=== PATIENT | female | born 1970 | race African-American/Black ===

== ENCOUNTER → 2018-06-17 15:55 | Outpatient (CLI) | payer BC, MEDICAID, SELFPAY ==
[2018-06-17 17:21] LABS: Absolute Lymphocyte Count 2.35 X10^3/ul (0.83-4.51); Absolute Neutrophil Count 5.5 X10^3/uL (2.0-7.7); Basophil# 0.05 X10^3/uL; Basophil% 0.6 % (0-1); Eosinophil# 0.35 X10^3/uL; Hematocrit 35.7 % (37-47); Hemoglobin 11.4 g/dl (12.0-15.0); Lymphocyte # 2.35 X10^3/ul (4.0); Lymphocyte % 26.6 % (19-41); Mean Corp Hgb Conc 31.9 g/gl (32-36); Mean Corpuscular Hgb 26.1 pg (27.0-32.0); Mean Corpuscular Volume 81.7 fL (81-99); Mean Platelet Vol. 11.2 fl (6.2-12.0); Monocyte# 0.57 X10^3/uL; Monocyte% 6.5 % (0-10); Neutrophil # 5.48 X10^3/uL (2.7-7.7); Neutrophil % 62.1 % (47-70); Platelet Count 292 K/mm3 (150-450); RBC Distribution Width CV 15.1 % (11.6-14.6); RBC Distribution Width SD 44.7 fl (35.1-43.9); Red Blood Count 4.37 M/mm3 (4.2-5.4); White Blood Count 8.8 K/mm3 (4.4-11.0)
[2018-06-17 17:25] LABS: POSITIVE COUNT NO; POSITIVE DIFFERENTIAL NO; POSITIVE MORPHOLOGY NO
[2018-06-17 17:51] LABS: Thyroid Stim Hormone (TSH) 1.94 uIU/mL (0.358-3.74)
== END ==
PROVIDERS: Family Provider Family Medicine; PCP Family Medicine; Referring Provider Nurse Practitioner Women's Health; Visit Provider Nurse Practitioner Women's Health
DX: N92.1 Excessive and frequent menstruation with irregular cycle (principal)
CPT/HCPCS: 36415; 84443; 85025

== ENCOUNTER → 2018-06-17 18:42 | Outpatient (CLI) | payer BC, MEDICAID, SELFPAY ==
[2018-06-23 14:30] LABS: HPV APTIMA, High Risk Negative (Negative)
== END ==
PROVIDERS: Family Provider Family Medicine; PCP Family Medicine; Referring Provider Nurse Practitioner Women's Health; Visit Provider Nurse Practitioner Women's Health
DX: Z12.4 Encounter for screening for malignant neoplasm of cervix (principal)
CPT/HCPCS: 88175; G0145

== ENCOUNTER → 2018-06-26 12:55 | Outpatient (CLI) | payer BC, MEDICAID, SELFPAY ==
--- NOTE | 2018-06-26 12:58 | US_ITS ---
STUDY: ULTRASOUND OF THE FEMALE PELVIS - COMPLETE REASON FOR EXAM: Female, 48 years old. Abnormal menses. LMP: June 24, 2018. TECHNIQUE: Transabdominal and Transvaginal TECHNICAL QUALITY: Adequate. COMPARISON: None. FINDINGS: The uterus is anteverted and is in a midline position. The uterus is enlarged and measures 15.4 cm x 9.2 cm x 8.6 cm. There is a Nabothian cyst of the cervix. The endometrium measures 5.7 mm in thickness, and is hyperechoic. There is no demonstrated endometrial mass. 3 fibroids are seen. The largest measures 5 cm x 3.3 cm x 4.4 cm. The uterine volume is 635 mL. I.U.D. - The patient does not have an I.U.D. The right ovary is non-visualized. The left ovary is visualized. The left ovary measures 4.5 cm x 4.5 cm x 1.8 cm. There is a 3.6 cm x 3.9 cm x 1.7 cm cyst. There is no visualized left adnexal mass or complex lesion. There is normal arterial and normal venous vascularity. There is no fluid in the cul-de-sac. The pre void volume of the bladder was 298 ml. Polycystic ovary disease: No. US/Transvaginal Non- IMPRESSION: Enlarged fibroid uterus. Left ovarian cyst. Electronically Signed: Oli Edge MD at 15:39 EDT Tel [phone], Service support ,
--- NOTE | 2018-06-26 12:58 | US_ITS ---
STUDY: ULTRASOUND OF THE FEMALE PELVIS - COMPLETE REASON FOR EXAM: Female, 48 years old. Abnormal menses. LMP: June 24, 2018. TECHNIQUE: Transabdominal and Transvaginal TECHNICAL QUALITY: Adequate. COMPARISON: None. FINDINGS: The uterus is anteverted and is in a midline position. The uterus is enlarged and measures 15.4 cm x 9.2 cm x 8.6 cm. There is a Nabothian cyst of the cervix. The endometrium measures 5.7 mm in thickness, and is hyperechoic. There is no demonstrated endometrial mass. 3 fibroids are seen. The largest measures 5 cm x 3.3 cm x 4.4 cm. The uterine volume is 635 mL. I.U.D. - The patient does not have an I.U.D. The right ovary is non-visualized. The left ovary is visualized. The left ovary measures 4.5 cm x 4.5 cm x 1.8 cm. There is a 3.6 cm x 3.9 cm x 1.7 cm cyst. There is no visualized left adnexal mass or complex lesion. There is normal arterial and normal venous vascularity. There is no fluid in the cul-de-sac. The pre void volume of the bladder was 298 ml. Polycystic ovary disease: No. US/Pelvic (Non ) IMPRESSION: Enlarged fibroid uterus. Left ovarian cyst. Electronically Signed: Oli Edge MD at 15:39 EDT Tel [phone], Service support ,
== END ==
PROVIDERS: Family Provider Family Medicine; PCP Family Medicine; Referring Provider Nurse Practitioner Women's Health; Visit Provider Nurse Practitioner Women's Health
DX: N92.1 Excessive and frequent menstruation with irregular cycle (principal)
CPT/HCPCS: 76830; 76856; 93976

== ENCOUNTER → 2018-07-29 15:15 | Outpatient (CLI) | payer BC, SELFPAY ==
--- NOTE | 2018-07-29 15:18 | BI_ITS ---
MAMMOGRAPHY - BILATERAL SCREENING REASON FOR EXAM: Female, 48 years old. Routine annual screening examination. PERTINENT HISTORY: Non-contributory. TECHNIQUE: Digital bilateral breast noelle (3D mammographic acquisition) in the CC and MLO projections. 2-D mediolateral oblique (MLO) and craniocaudad (CC) views of both breasts were obtained. CAD: Full Field Digital Mammography with Computer Added Detection was performed. COMPARISON: Comparison is made with prior mammogram dated May 29, 2015 and May 18, 2014. FINDINGS: Breast Composition: The breasts are heterogeneously dense, which may obscure small masses. There are no dominant masses or suspicious calcifications. Stable 9.4 mm x 1.2 cm nodular density with a central fatty hilum in the superior lateral aspect of the left breast. This most likely represents a small lymph node. Stable benign appearing bilateral axillary lymph nodes. No other significant abnormalities are identified. There has been no significant change since the prior study. BI/SCREENING MAMM (CAD), BILAT IMPRESSION: Stable bilateral screening mammogram. Yearly follow-up mammogram recommended. (A) ASSESSMENT CATEGORY: BIRADS Category 2: Benign. A letter regarding these results will be sent to the patient by the facility within 30 days. Approximately 10% of breast cancers are not detected by mammography. A normal mammogram should not delay biopsy of a clinically suspicious abnormality. [id number] Electronically Signed: Oli Edge MD at 8:41 EST Tel [phone], Service support ,
--- OUTSIDE RECORDS SUMMARY | 2018-09-24 01:35 | XMS RPT_ITS ---
:1970 Author Organization OHIP Support Name Relationship Address Phone ADRIEN CARRERO Unavailable [address] + [place] [address] DARYN YUEN Unavailable [address] + [place] [address] [facility] Unavailable [address] + [place] [address] CARRERO ADRIEN Unavailable [address] + [place] [address] DARYN YUEN Unavailable [address] + [place] [address] [facility] Unavailable [address] + [place] [address] CARRERO ADRIEN Unavailable [address] + [place] [address] DARYN YUEN Unavailable [address] + [place] [address] [facility] Unavailable [address] + [place] [address] CARRERO ADRIEN Unavailable [address] + [place] [address] DARYN YUEN Unavailable [address] + [place] [address] [facility] Unavailable [address] + [place] [address] CARRERO ADRIEN Unavailable [address] + [place] [address] DARYN YUEN Unavailable [address] + [place] [address] [facility] Unavailable [address] + [place] [address] CARRERO ADRIEN Unavailable [address] + [place] [address] DARYN YUEN Unavailable [address] + [place] [address] [facility] Unavailable [address] [facility] + [place] [address] Care Team Providers Name Role Phone Dungannon, Ayah Attending Unavailable Malys, Maxine Referring Unavailable Aurora, Ayah Attending Unavailable Aurora, Ayah Referring Unavailable Malys, Maxine Primary Care Unavailable Aurora, Ayah Attending Unavailable Malys, Maxine Primary Care Unavailable Aurora, Ayah Referring Unavailable Dungannon, Ayah Attending Unavailable Aurora, Ayah Referring Unavailable Malys, Maxine Primary Care Unavailable Aurora, Ayah Attending Unavailable Malys, Maxine Referring Unavailable Malys, Maxine Attending Unavailable Malys, Maxine Primary Care Unavailable PROBLEMS PROBLEMS DATE TYPE CONDITION / CODE ATTENDING STATUS SOURCE 08/06/2018 Unknown N92.0 - Excessive Aurora, Ayah Active [place] and frequent Community menstruation with Hospital regular cycle / Repository N92.0(ICD-10) 08/06/2018 Unknown D25.9 - Leiomyoma Aurora, Ayah Active [place] of uterus, Community unspecified / Hospital D25.9(ICD-10) Repository 08/06/2018 Unknown N83.202 - Aurora, Ayah Active [place] Unspecified Community ovarian cyst, left Hospital side / Repository N83.202(ICD-10) 07/15/2018 Unknown N92.1 - Excessive Aurora, Ayah Active [place] and frequent Community menstruation with Hospital irregular cycle / Repository N92.1(ICD-10) 07/15/2018 Unknown N92.6 - Irregular Dungannon, Ayah Active [place] menstruation, Community unspecified / Hospital N92.6(ICD-10) Repository 07/15/2018 Unknown N85.2 - Dungannon, Ayah Active [place] Hypertrophy of Community uterus / Hospital N85.2(ICD-10) Repository 07/15/2018 Unknown Z12.4 - Encounter Dungannon, Ayah Active [place] for screening for Community malignant neoplasm [facility] cervix / Repository Z12.4(ICD-10) PROCEDURES PROCEDURES No Procedure Records FoundRESULTS RESULTS SCREENING MAMM (CAD), Observed: 07/29/2018 Status: F Source: [place] BILAT 3:18 PM [facility] REPOSITORY [facility] Imaging Services [address] [place] [address] SCREENING MAMM (CAD), BILAT MR#: [id number] Acct: [id number] Name: ALTA CARRERO Rep #: [id number] : 1970 F 48 From: Oli Edge MD PCP: Maxine Ortiz DO Status: REG CLI Study: SCREENING MAMM (CAD), BILAT Date of Exam: 07/29/18 Exam# [id number] Ordering Dr: Maxine Ortiz DO MAMMOGRAPHY - BILATERAL SCREENING REASON FOR EXAM: Female, 48 years old. Routine annual screening examination. PERTINENT HISTORY: Non-contributory. TECHNIQUE: Digital bilateral breast noelle (3D mammographic acquisition) in the CC and MLO projections. 2-D mediolateral oblique (MLO) and craniocaudad (CC) views of both breasts were obtained. CAD: Full Field Digital Mammography with Computer Added Detection was performed. COMPARISON: Comparison is made with prior mammogram dated May 29, 2015 and May 18, 2014. FINDINGS: Breast Composition: The breasts are heterogeneously dense, which may obscure small masses. There are no dominant masses or suspicious calcifications. Stable 9.4 mm x 1.2 cm nodular density with a central fatty hilum in the superior lateral aspect of the left breast. This most likely represents a small lymph node. Stable benign appearing bilateral axillary lymph nodes. No other significant abnormalities are identified. There has been no significant change since the prior study. BI/SCREENING MAMM (CAD), BILAT IMPRESSION: Stable bilateral screening mammogram. Yearly follow-up mammogram recommended. (A) ASSESSMENT CATEGORY: BIRADS Category 2: Benign. A letter regarding these results will be sent to the patient by the facility within 30 days. Approximately 10% of breast cancers are not detected by mammography. A normal mammogram should not delay biopsy of a clinically suspicious abnormality. [id number] Electronically Signed: Oli Edge MD at 8:41 EST Tel [phone], Service support , CC: Maxine Ortiz DO [place]: Signed GAS LINE INSTALLER OFFICE VISIT Observed: 07/07/2018 Status: F Source: [place] REPORT 4:48 PM [facility] [address] [place] [address] OFFICE VISIT Date of Service: 07/07/18 MR#: [id number] Acct: [id number] Name: ALTA CARRERO Rep #: [id number] : 1970 Provider: PATRICIA Simon Age/Sex: 48/F Location: [facility] Status: Signed Intake Vital Signs07/07/18 Height 5 ft 6.5 in 07/07/18 Weight: 223 lb 07/07/18 Body Mass Index (BMI) 35.4 07/07/18 Blood Pressure 140/88 H Intake Visit Reasons: Discuss Surgery Options Chief Complaint: SURGICAL CONSULT Foreign Clerk Required: No Is patient in pain?: No Allergies egg Allergy (Verified 07/07/18 15:54) Anaphylaxis sulfamethoxazole [From Bactrim] Adverse Reaction (Verified 07/07/18 15:54) Hives trimethoprim [From Bactrim] Adverse Reaction (Verified 07/07/18 15:54) Hives Medications Albuterol Sulfate [Ventolin Hfa] 18 gm IH PRN PRN 02/04/17 [History Confirmed 07/07/18] Atenolol 50 mg PO DAILY 02/04/17 [History Confirmed 07/07/18] Diazepam [Valium] 5 mg PO Q8 PRN #10 tab 02/04/17 [Rx Confirmed 07/07/18] Mometasone/Formoterol [Dulera 100 Mcg/5 Mcg Inhaler] 8.8 gm IH DAILY 02/04/17 [History Confirmed 07/07/18] Ondansetron [Zofran Odt] 4 mg PO Q8H PRN PRN #10 tab 02/04/17 [Rx Confirmed 07/07/18] Is last menstrual period known: No Post menopausal: No Patient : No : No PFSH Medical History Asthma (Acute) Hypertension (Chronic) Social History number of children: 3 current occupational status: employed current occupation: [employer] Smoking Status: Never smoker alcohol intake: never substance use type: does not use seatbelt use: always do you feel safe at home: Yes additional social history: Adrien Swain HPI Discuss Surgery Options: Details: ALTA CARRERO is a 48 year old who presents for discussion of options to control heavy menses and uterine fibroids. She has been on progesterone OCP X 2 years and thought that long and heavy menses was due to that. She came to me for 2nd opinion and US results indicates enlarged 15cm uterus with multiple fibroids. She did stop the OCP and has not yet had a menses. She can not use combination OCP due to hypertension. Her is with her today. Pregancy History 4 Elective abortions Hx Para 3 Spontaneous abortions 1 Past Pregnancies Del. DateName GA/Weeks Outcome Route Bth WeighInfant GeLabor LgtAnesthesiDel LocatProvider FOB t n h a n ROS Const Constitutional: Reports system reviewed and no additional complaints, except as docu GI GI: Denies abdominal pain or change in bowel habits Assessment AND Plan Problems 1. Menorrhagia with regular cycle N92.0 2. Uterine leiomyoma, unspecified location D25.9 3. Cyst of left ovary N83.202 Plan Patient declines IUD but would consider hysterectomy. Will arrange consult with Dr. Lambert and surgery after Sep 01. Repeat US to confirm stable ovarian cyst in 8 weeks if no surgery 15 min FTF counseling with patient Coding Level of Care Code Off vis,est,level 3 Diagnoses Menorrhagia with regular cycle N92.0 Uterine leiomyoma, unspecified location D25.9 Uterine leiomyoma location: unspecified location Cyst of left ovary N83.202 Laterality: left 07/07/18 1648 <Electronically signed by Ayah MILLER> Date Ayah SANDRAC Cosigner Signature: Date (if applicable) CC: PELVIC (NON ) Observed: 06/26/2018 Status: F Source: [place] 12:58 PM [facility] REPOSITORY [facility] Imaging Services [address] [place] [address] Pelvic (Non ) MR#: [id number] Acct: [id number] Name: ALTA CARRERO Rep #: [id number] : 1970 F 48 From: Oli Edge MD PCP: Maxine Ortiz DO Status: REG CLI Study: Pelvic (Non ) Date of Exam: 06/26/18 Exam# [id number] Ordering Dr: Ayah Simon STUDY: ULTRASOUND OF THE FEMALE PELVIS - COMPLETE REASON FOR EXAM: Female, 48 years old. Abnormal menses. LMP: June 24, 2018. TECHNIQUE: Transabdominal and Transvaginal TECHNICAL QUALITY: Adequate. COMPARISON: None. FINDINGS: The uterus is anteverted and is in a midline position. The uterus is enlarged and measures 15.4 cm x 9.2 cm x 8.6 cm. There is a Nabothian cyst of the cervix. The endometrium measures 5.7 mm in thickness, and is hyperechoic. There is no demonstrated endometrial mass. 3 fibroids are seen. The largest measures 5 cm x 3.3 cm x 4.4 cm. The uterine volume is 635 mL. I.U.D. - The patient does not have an I.U.D. The right ovary is non-visualized. The left ovary is visualized. The left ovary measures 4.5 cm x 4.5 cm x 1.8 cm. There is a 3.6 cm x 3.9 cm x 1.7 cm cyst. There is no visualized left adnexal mass or complex lesion. There is normal arterial and normal venous vascularity. There is no fluid in the cul-de-sac. The pre void volume of the bladder was 298 ml. Polycystic ovary disease: No. US/Pelvic (Non ) IMPRESSION: Enlarged fibroid uterus. Left ovarian cyst. Electronically Signed: Oli Edge MD at 15:39 EDT Tel [phone], Service support , CC: PATRICIA Simon; Maxine Ortiz DO [place]: Signed TRANSVAGINAL Observed: 06/26/2018 Status: F Source: [place] NON- 12:58 PM [facility] REPOSITORY [facility] Imaging Services [address] [place] [address] [place] [address] Transvaginal Non- MR#: [id number] Acct: [id number] Name: ALTA CARRERO Rep #: [id number] : 1970 F 48 From: Oli Edge MD PCP: Maxine Ortiz DO Status: REG CLI Study: Transvaginal Non- Date of Exam: 06/26/18 Exam# [id number] Ordering Dr: Ayah Simon CLINICAL REVIEWER-C STUDY: ULTRASOUND OF THE FEMALE PELVIS - COMPLETE REASON FOR EXAM: Female, 48 years old. Abnormal menses. LMP: June 24, 2018. TECHNIQUE: Transabdominal and Transvaginal TECHNICAL QUALITY: Adequate. COMPARISON: None. FINDINGS: The uterus is anteverted and is in a midline position. The uterus is enlarged and measures 15.4 cm x 9.2 cm x 8.6 cm. There is a Nabothian cyst of the cervix. The endometrium measures 5.7 mm in thickness, and is hyperechoic. There is no demonstrated endometrial mass. 3 fibroids are seen. The largest measures 5 cm x 3.3 cm x 4.4 cm. The uterine volume is 635 mL. I.U.D. - The patient does not have an I.U.D. The right ovary is non-visualized. The left ovary is visualized. The left ovary measures 4.5 cm x 4.5 cm x 1.8 cm. There is a 3.6 cm x 3.9 cm x 1.7 cm cyst. There is no visualized left adnexal mass or complex lesion. There is normal arterial and normal venous vascularity. There is no fluid in the cul-de-sac. The pre void volume of the bladder was 298 ml. Polycystic ovary disease: No. US/Transvaginal Non- IMPRESSION: Enlarged fibroid uterus. Left ovarian cyst. Electronically Signed: Oli Edge MD at 15:39 EDT Tel [phone], Service support , CC: PATRICIA Simon; Maxine Ortiz DO [place]: Signed GAS LINE INSTALLER OFFICE VISIT Observed: 06/17/2018 Status: F Source: [place] REPORT 4:35 PM [facility] [address] [place] [address] OFFICE VISIT Date of Service: 06/17/18 MR#: [id number] Acct: [id number] Name: ALTA CARRERO Rep #: [id number] : 1970 Provider: PATRICIA Simon Age/Sex: 48/F Location: [facility] Status: Signed Intake Vital Signs06/17/18 Height 5 ft 6 in 06/17/18 Weight: 223 lb 4 oz 06/17/18 Body Mass Index (BMI) 36.0 06/17/18 Blood Pressure 115/72 Intake Visit Reasons: Heavy bleeding Foreign Clerk Required: No Is patient in pain?: No Allergies egg Allergy (Verified 06/17/18 15:25) Anaphylaxis sulfamethoxazole [From Bactrim] Adverse Reaction (Verified 06/17/18 15:25) Hives trimethoprim [From Bactrim] Adverse Reaction (Verified 06/17/18 15:25) Hives Medications Albuterol Sulfate [Ventolin Hfa] 18 gm IH PRN PRN 02/04/17 [History Confirmed 06/17/18] Atenolol 50 mg PO DAILY 02/04/17 [History Confirmed 06/17/18] Diazepam [Valium] 5 mg PO Q8 PRN #10 tab 02/04/17 [Rx Confirmed 06/17/18] Mometasone/Formoterol [Dulera 100 Mcg/5 Mcg Inhaler] 8.8 gm IH DAILY 02/04/17 [History Confirmed 06/17/18] Ondansetron [Zofran Odt] 4 mg PO Q8H PRN PRN #10 tab 02/04/17 [Rx Confirmed 06/17/18] Is last menstrual period known: Yes Last Menstral Period: 06/08/18 Post menopausal: No Patient : No : No PFSH Medical History Asthma (Acute) Hypertension (Chronic) Social History number of children: 3 current occupational status: employed current occupation: [employer] Smoking Status: Never smoker alcohol intake: never substance use type: does not use seatbelt use: always do you feel safe at home: Yes additional social history: Adrien SANDS Heavy bleeding: Details: ALTA CARRERO is a 48 year old who presents for new patient complaint of irregular menses. Was see by WAREHOUSE DELIVERY DRIVER another facility about 1 year ago and IUD was placed. When she went back for follow up the IUD could not be found. [facility] office US done by provider but no formal US. She was then placed on progesterone only OCP to control menses (due to HTN) and has continued to have irregular bleeding and spotting, sometimes heavy. States feels very tired. She is and had STD evaluation done prior to marriage but [facility] is due for pap and mammogram. Female Reproductive History Last Menstral Period: 06/08/18 Pregancy History 4 Elective abortions Hx Para 3 Spontaneous abortions 1 Past Pregnancies Del. DateName GA/Weeks Outcome Route Bth WeighInfant GeLabor LgtAnesthesiDel LocatProvider FOB t n h a n ROS Const Constitutional: Reports system reviewed and no additional complaints, except as docu GI GI: Denies abdominal pain or change in bowel habits Exam General: bladder normal to palpation External Female Exam: normal external appearance, normal appearance of the urethra Urethra: normal appearance of the urethra Speculum Exam - Vagina: normal appearance of the vagina, normal vaginal discharge, nontender, no lesions Speculum Exam - Cervix: normal appearance of the cervix, other (smooth, nonfriable) Bimanual Exam- Vagina AND Uterus: bladder normal to palpation, normal bimanual exam, uterine shape normal, uterine mobility normal, uterus non-tender, uterus enlarged (8-10 weeks) Bimanual Exam- Adnexa, other: normal adnexae, no adnexal masses, adnexae non-tender Assessment AND Plan Problems 1. Irregular menstrual cycle N92.6 2. Enlarged uterus N85.2 3. Pap smear for cervical cancer screening Z12.4 Plan Stop OCP Ultrasound Thin prep pap with HPV Possible EMB dependent on US and continued bleeding pattern without OCP. Follow up dependent on above Mammogram ordered per PCP Orders Orders: Coding Level of Care Code Off vis,new,level 3 Diagnoses Irregular menstrual cycle N92.6 Enlarged uterus N85.2 Pap smear for cervical cancer screening Z12.4 06/17/18 1635 <Electronically signed by Ayah MILLER> Date Ayah MILLER Cosigner Signature: Date (if applicable) CC: CBC W/DIFF, AUTOMATED Collected: 06/17/2018 Status: F Source: [place] 4:04 PM [facility] REPOSITORY TYPE CODE TESTS RESULT OUT OF RANGE REFERENCE UNITS LAB L100.1000 4.4-11.0 K/mm3 Normal WBC 8.8 LAB L100.1200 4.2-5.4 M/mm3 Normal RBC 4.37 LAB L100.1300 12.0-15.0 g/dl Low HGB 11.4 LAB L100.1400 37-47 % Low HCT 35.7 LAB L100.1500 81-99 fL Normal MCV 81.7 LAB L100.1600 27.0-32.0 pg Low MCH 26.1 LAB L100.1700 32-36 g/gl Low MCHC 31.9 LAB L100.1810 11.6-14.6 % High RDW CV 15.1 LAB L100.1820 35.1-43.9 fl High RDW SD 44.7 LAB L100.1900 150-450 K/mm3 Normal PLT 292 LAB L100.2000 6.2-12.0 fl Normal MPV 11.2 LAB L100.2100 47-70 % Normal NEUT% 62.1 LAB L100.2200 19-41 % Normal LY% 26.6 LAB L100.2300 0-10 % Normal MONO% 6.5 LAB L100.2400 0-5 % Normal EO% 4.0 LAB L100.2500 0-1 % Normal BASO% 0.6 LAB L100.2550 0.0-0.9 % Normal IM GRAN % 0.200 Result Comment: IG% - Immature Granulocytes (promyelocytes, myelocytes and metamyelocytes) > 1% indicates that a LEFT SHIFT is Present. LAB L100.2620 2.0-7.7 X10 3/uL Normal Absolute Neut 5.5 LAB L100.2720 0.83-4.51 X10 3/ul Normal Absolute Lymph 2.35 Performed By: #### L100.0100, L501.4891 #### [facility] [address] [place], [place], [id number] THYROID STIM HORMONE Collected: 06/17/2018 Status: F Source: [place] (TSH) 4:04 PM [facility] REPOSITORY TYPE CODE TESTS RESULT OUT OF RANGE REFERENCE UNITS LAB L501.9520 0.358-3.74 uIU/mL Normal TSH 1.94 Performed By: #### L100.0100, L501.6120 #### [facility] [address], [place], [id number] PAP IG HPV APTIMA Collected: 06/17/2018 Status: F Source: [place] 16/18,45 3:30 PM [facility] REPOSITORY Order Comment: CYTOLOGY INFORMATION: - CLINICAL INFORMATION: ANNUAL - DATE LMP/MENOPAUSE: - COLLECTION VIAL: Thin Prep Vial - WAREHOUSE DELIVERY DRIVER SOURCE: CERVICAL - COLLECTION TECHNIQUE: BRUSH/SPATULA Specimen Comment: [id number] Specimen Comment: Source.............Cervix Specimen Comment: No. of containers..01 ThinPrep Vial TYPE CODE TESTS RESULT OUT OF RANGE REFERENCE UNITS LAB L7400.0800 . Normal DIAGN Comment Result Comment: NEGATIVE FOR INTRAEPITHELIAL LESION AND MALIGNANCY. LAB L7400.0900 . Normal ADEQ Comment Result Comment: Satisfactory for evaluation. Endocervical and/or squamous metaplastic cells (endocervical component) are present. Areas of partially obscuring inflammtory exudate are present. LAB L7400.1400 . Normal PERFORM Comment Result Comment: Vikki Anderson Thread Inspector (ASCP) LAB L7400.2575 . Normal TEST METHOD Comment Result Comment: This liquid based ThinPrep(R) pap test was screened with the use of an image guided system. LAB L7400.2600 . Normal . COMM LAB L7400.2700 . Normal PAPSMR Comment Result Comment: The Pap smear is a screening test designed to aid in the detection of premalignant and malignant conditions of the uterine cervix. It is not a diagnostic procedure and should not be used as the sole means of detecting cervical cancer. Both false-positive and false-negative reports do occur. LAB L7400.2760 Negative Normal HPV APTIMA, Negative HR Result Comment: This test detects fourteen high-risk HPV types (16/18/31/33/35/39/45/ 51/52/56/58/59/66/68) without differentiation. Performed at: - [facility] [id number] Truck Chauffeur: Ankita Jalloh MD, Phone: [phone] Performed at: = - [facility] [address] [id number] Truck Chauffeur: Ankita Jalloh MD, Phone: [phone] Performed By: #### L7400.0280 #### [facility] (refer to report for specific site) refer to report for address and phone number ALLERGIES ALLERGIES DATE TYPE / CODE NAME / CODE REACTION SEVERITY SOURCE 07/07/2018 Drug sulfamethox Hives Unknown [place] [facility] Allergy/4160 azole/F0060 Hospital 94803(SNOMED 24322(RXNOR Repository CT) M) 07/07/2018 Drug trimethopri Hives Unknown [place] [facility] Allergy/4160 m/[id number] Hospital 15023(SNOMED 3(RXNORM) Repository CT) 07/07/2018 Drug egg/[id number] Anaphylaxis Unknown [place] [facility] Allergy/4160 947(RXNORM) Hospital 12190(SNOMED Repository CT) ENCOUNTERS ENCOUNTERS ADMIT/DISCHARGE ACCOUNT ADMITTING ENCOUNTER LOCATION SOURCE NUMBER CLASS 07/29/2018 [id number] Ambulatory [place] 9 [facility] ing:OPBI Repository 07/07/2018/ [id number] Ambulatory BMSBuilding:B [place] 8 5 [facility] Repository 06/26/2018 [id number] Ambulatory [place] 6 [facility] ing:OPUS Repository 06/17/2018 [id number] Ambulatory [place] 6 [facility] ing:LABSPEC Repository 06/17/2018 [id number] Ambulatory [place] 8 [facility] ing:LAB Repository 06/17/2018/ [id number] Ambulatory BMSBuilding:B [place] 8 1 [facility] Repository PAYERS PAYERS ENCOUNTER GUARANTOR PAYER SUBSCRIBER SOURCE 07/29/2018 ALTA CARRERO1870 Primary ALTA HALLDOB: [place] Insurance:ANTHEMPolic [id number] [place] Number: [facility] [address]Lmc: 330 [id number] Repository [phone] () Date:[id number] [address]SM: 07/29/2018 Secondary NOT GIVENUNK [place] Insurance:SELF PAY [facility] Number: Effective Repository Date:2018-06-18 07/07/2018 ALTAMICKEY CARRERO1870 Primary ALTA HALLDOB: [place] Insurance:ANTHEMPolic [id number] [place] Number: [facility] [address]Yss: 330 [id number] Repository [phone] () Date:7832-59-09DB [address] [place] [address]YP: 07/07/2018 Secondary NOT GIVENUNK [place] Insurance:SELF PAY [facility]: Effective Repository Date:2018-07-07 06/26/2018 [place] [address] Primary ALTA HALLDOB: [place] Insurance:ANTHEMPolic [id number] Number: Hospital [address]Nbc: (330 [id number] Repository [phone] (HP) Date:5024-96-04QQ [address] [place] [address]QB: 06/26/2018 [facility] [place] Insurance:[place] [id number]. [facility] PLANPolicy Number: Repository [id number] Date:3664-96-34ZH [address] [place] [address] [place] [address]OE: 06/26/2018 Tertiary NOT GIVENUNK [place] Insurance:SELF PAY [facility] Number: Effective Repository Date:2018-06-18 06/17/2018 [place] [address] Primary [facility] [place] Insurance:ANTHEMPolic [id number] Number: [facility] [address]Cgl: (330 [id number] Repository [phone] () Date:7820-42-10CO [address] [place] [address]GU: 06/17/2018 Secondary ALTA HALLDOB: [place] Insurance:[place] [id number]. [facility] PLANPolicy Number: Repository [id number] Date:1367-70-23EZ [address] [place] [address] [place] [address]HA: 06/17/2018 Tertiary NOT GIVENUNK [place] Insurance:SELF PAY [facility] Number: Effective Repository Date:2018-06-17 06/17/2018 [place] [address] Primary ALTA HALLDOB: [place] Insurance:ANTHEMPolic [id number] Number: Hospital [address]Erc: (330 [id number] Repository [phone] () Date:5645-60-39MK [address] [place] [address]EZ: 06/17/2018 Secondary [facility] [place] Insurance:[place] [id number]. [facility], [facility] PLANPolicy Number: Repository [id number] Date:8925-88-54KG [address] [place] [address]DX: 06/17/2018 Tertiary NOT GIVENUNK [place] Insurance:SELF PAY [facility] Number: Effective Repository Date:2018-06-17 06/17/2018 [place] [address] Primary [facility] [place] Insurance:[facility] [id number] Number: Hospital [id number]: (330) [id number] Repository [phone] () Date:2517-52-13FF [address] [place] [address] 217[address]XS: 06/17/2018 Secondary [facility] [place] Insurance:[place] [id number]. [facility] PLANPolicy Number: Repository [id number] Date:5602-46-39IB [address] [place] [address]YG: 06/17/2018 Tertiary NOT GIVENUNK [place] Insurance:SELF PAY [facility] Number: Effective Repository Date:2018-06-17
== END ==
PROVIDERS: Family Provider Family Medicine; PCP Family Medicine; Visit Provider Family Medicine
DX: Z12.31 Encounter for screening mammogram for malignant neoplasm of breast (principal)
CPT/HCPCS: 77063; 77067

== ENCOUNTER → 2018-08-21 11:24 | Outpatient (CLI) | payer BC, SELFPAY ==
--- NOTE | 2018-08-21 18:06 | US_ITS ---
STUDY: ULTRASOUND OF THE FEMALE PELVIS - COMPLETE REASON FOR EXAM: Female, 48 years old. 8 week follow-up LMP: 08/09/2018 TECHNIQUE: Transabdominal and Transvaginal TECHNICAL QUALITY: Adequate. COMPARISON: 06/26/2018 FINDINGS: The uterus is anteverted and is in a midline position. The uterus measures 12.0 x 9.7 x 7.3 cm. Normal uterine cervix. The endometrium measures 5 mm in thickness, and is hyperechoic. There is no demonstrated endometrial mass. Again noted are multiple uterine fibroids, largest of which measures 5.7 x 5.6 x 5.4 cm. I.U.D. - The patient does not have an I.U.D. The right ovary is non-visualized. No adnexal mass. The left ovary is visualized. The left ovary measures 3.4 x 2.9 x 1.4 cm. There is no left ovarian cyst or ovarian mass. There is no visualized left adnexal mass or complex lesion. There is normal arterial and normal venous vascularity. Dominant anechoic ovarian follicle measuring 1.5 x 1.4 x 1.3 cm. There is no fluid in the cul-de-sac. US/Pelvic (Non ) IMPRESSION: Stable multi fibroid uterus. Dominant left ovarian follicle. No suspicious left ovarian cyst. Electronically Signed: Balta Zepeda DO at 12:11 EST Tel , Service support ,
--- NOTE | 2018-08-21 18:06 | US_ITS ---
STUDY: ULTRASOUND OF THE FEMALE PELVIS - COMPLETE REASON FOR EXAM: Female, 48 years old. 8 week follow-up LMP: 08/09/2018 TECHNIQUE: Transabdominal and Transvaginal TECHNICAL QUALITY: Adequate. COMPARISON: 06/26/2018 FINDINGS: The uterus is anteverted and is in a midline position. The uterus measures 12.0 x 9.7 x 7.3 cm. Normal uterine cervix. The endometrium measures 5 mm in thickness, and is hyperechoic. There is no demonstrated endometrial mass. Again noted are multiple uterine fibroids, largest of which measures 5.7 x 5.6 x 5.4 cm. I.U.D. - The patient does not have an I.U.D. The right ovary is non-visualized. No adnexal mass. The left ovary is visualized. The left ovary measures 3.4 x 2.9 x 1.4 cm. There is no left ovarian cyst or ovarian mass. There is no visualized left adnexal mass or complex lesion. There is normal arterial and normal venous vascularity. Dominant anechoic ovarian follicle measuring 1.5 x 1.4 x 1.3 cm. There is no fluid in the cul-de-sac. US/Transvaginal Non- IMPRESSION: Stable multi fibroid uterus. Dominant left ovarian follicle. No suspicious left ovarian cyst. Electronically Signed: Balta Zepeda DO at 12:11 EST Tel , Service support ,
== END ==
PROVIDERS: Family Provider Family Medicine; PCP Family Medicine; Referring Provider Nurse Practitioner Women's Health; Visit Provider Nurse Practitioner Women's Health
DX: N92.6 Irregular menstruation, unspecified (principal)
CPT/HCPCS: 76830; 76856; 93976

== ENCOUNTER 2018-10-22 07:37 | Day surgery (SDC) | payer BC, SELFPAY ==
[2018-10-13 16:31] VITALS: BMI 34.2
[2018-10-22] VITALS (13 sets, daily range): BP systolic 102–154; BP diastolic 60–74; PULSE 50–90; RESP 16–18; TEMP 36.1–36.9; O2SAT 95–100; BMI 34.0
--- NOTE | 2018-10-22 00:23 | HP.PCM_ITS ---
- Problem List (1) Abnormal uterine bleeding Status: Acute (2) Uterine fibroid Status: Acute History and Physical Date of Admission: 10/22/18 Intake Vital Signs 10/13/18 Height 5 ft 6.5 in 10/13/18 Weight: 215 lb 6 oz 10/13/18 Body Mass Index (BMI) 34.2 10/13/18 Blood Pressure 142/90 H Intake Visit Reasons: Pre-op for surgery Chief Complaint: pre op appt Trust Operations Assistant Required: No Is patient in pain?: No Allergies egg Allergy (Verified 10/13/18 16:32) Anaphylaxis sulfamethoxazole [From Bactrim] Adverse Reaction (Verified 10/13/18 16:32) Hives trimethoprim [From Bactrim] Adverse Reaction (Verified 10/13/18 16:32) Hives Medications Albuterol Sulfate [Ventolin Hfa] 18 gm IH PRN PRN 02/04/17 [History Confirmed 0 10/13/18] Atenolol 50 mg PO DAILY 02/04/17 [History Confirmed 10/13/18] Diazepam [Valium] 5 mg PO Q8 PRN #10 tab 02/04/17 [Rx Confirmed 10/13/18] Mometasone/Formoterol [Dulera 100 Mcg/5 Mcg Inhaler] 8.8 gm IH DAILY 02/04/17 [History Confirmed 10/13/18] Is last menstrual period known: No Post menopausal: No Patient : No : No [facility] Medical History Asthma (Acute) Hypertension (Chronic) Social History number of children: 3 current occupational status: employed current occupation: [employer] Smoking Status: Never smoker alcohol intake: never substance use type: does not use seatbelt use: always do you feel safe at home: Yes additional social history: Adrien Swain WICHO Pre-op for surgery: Details: ALTA CARRERO is a 48 year old who presents for hysterectomy as buzz mmended by Ayah Simon, she has an enlarged fibroids and an enlarged uterus. Female Reproductive History Cycle Length: 21-35 Bleeding Duration: 7 Pregancy History 4 Elective abortions Hx Para 3 Spontaneous abortions 1 Hx # Term Pregnancies Ectopic pregnancies Hx # Pregnancies Multiple births # of living children 3 Past Pregnancies Del. Date Name GA/Weeks Outcome Route Bth Weight Gen [facility] Unknown Kailash 1986 Unknown Evaristo 1996 Unknown Lula 2000 ROS Const Constitutional: Denies fatigue, fever(s), headache(s), increased appetite, poor appetite, weight gain or weight loss Cardio Card: Denies chest pain Resp Resp: Denies cough or dyspnea GI GI: Reports as per HPI; denies abdominal pain, constipation, nausea or vomiting : Reports as per HPI; denies difficulty urinating, painful urination, nipple discharge, urinary frequency, urinary incontinence, urinary hesitancy, urinary urgency, vaginal discharge, vaginal dryness, vaginal odor or vaginal itching Skin Skin/Breast: Denies change in hair, breast lump, breast pain, breast skin changes or nipple discharge Exam Const General: cooperative, healthy appearing, comfortable, no acute distress, well developed Nutritional Appearance: average body habitus Orientation: alert HENMT Head: normal to inspection, normocephalic Neck Neck: normal visual inspection, trachea midline Thyroid: thyroid normal Cardiovascular: RRR Resp Effort & Inspection: normal respiratory effort GI Inspection: normal to inspection, non-distended Palpation: soft, no hepatosplenomegaly Skin General: no rashes or lesions noted Assessment & Plan Problems 1. Intramural, submucous, and subserous leiomyoma of uterus D25.1; D25.0; D25.2 2. Abnormal uterine bleeding N93.9 Plan plan LAV BS cysto. discussed surgical risks including risks of anesthesia, infection, bleeding, injury to bowel, bladder or blood vessels, and patient wishes to proceed with surgery. Coding Level of Care Code No Charge Diagnoses Intramural, submucous, and subserous leiomyoma of uterus D25.1; D25.0; D25.2 ??Uterine leiomyoma location: intramural, submucous, and subserous Abnormal uterine bleeding N93.9 UPDATE- I have seen the patient and performed any clinically relevant updates to the history and physical exam. Mariel Lambert MD
[2018-10-22 08:06] LABS: Hematocrit 33.4 % (37-47); Hemoglobin 10.4 g/dl (12.0-15.0); Mean Corp Hgb Conc 31.1 g/gl (32-36); Mean Corpuscular Hgb 25.7 pg (27.0-32.0); Mean Corpuscular Volume 82.7 fL (81-99); Mean Platelet Vol. 9.9 fl (6.2-12.0); Platelet Count 357 K/mm3 (150-450); RBC Distribution Width CV 14.5 % (11.6-14.6); RBC Distribution Width SD 43.9 fl (35.1-43.9); Red Blood Count 4.04 M/mm3 (4.2-5.4); Scan Indicated on CBC? Y/N NO
[2018-10-22 08:12] LABS: Internal QC Validated? YES +Cl - CLEAR BKGD; Pregnancy, Urine Negative Negative
[2018-10-22] MEDS: Phenazopyridine 95 MG Tablet 190 MG PO (08:25)
--- NOTE | 2018-10-22 09:40 | HYST_PTH ---
PATIENT: ALTA CARRERO [place] [facility] [id number] AGE/SX: 48/F ROOM: RE10/22/[address]: Dr. Mariel Lambert MD : 1970 BED: DIS: 10/23/2018 SPEC #: [id number] RECD: 10/22/18 12:27 STATUS: LY DAX #: [id number] WILLIAM: 10/22/18 09:[address]: Mariel Lambert DEPT: SURGICAL PATHOLOGY RECD BY: Gary Singh ENTERED: 10/22/18 13:47 SP TYPE: HYSTERECT OTHR DR: Dr. Maxine Ortiz DO Tissues: Uterus, NOS Procedures: Surgery Specimen Level V HEADER OPERATION: Laparoscopic assisted vaginal hysterectomy, cystoscopy PRE-OP DIAGNOSIS: Intramural submucous and subserous leiomyoma of uterus; abnormal uterine bleeding TISSUE SUBMITTED: Uterus MICROSCOPIC DIAGNOSIS Uterus, hysterectomy: Cervix - nabothian cysts and mild chronic inflammation. Endometrium - proliferative endometrium and mild chronic endometritis. Myometrium - leiomyomas and adenomyosis. AM:nanci 10/23/18 MICROSCOPIC DESCRIPTION Slides are reviewed. GROSS DESCRIPTION Received in fixative is one container labeled with the patient's name and designated uterus. The specimen consists of a uterus received in three fragments ranging in size from 4.5 to 14.5 cm. The specimen in aggregate weighs 412 gm. The smallest fragment is nodular and rubbery and consistent with a leiomyoma. Cut sections reveal homogenous pink-white cut surfaces without areas of cyst formation or necrosis. A distinct endometrial cavity is not identified due to fragmentation. The visible endometrial surface measures 6 x 3 cm. The pink-machuca velvety endometrium measures up to 0.1 cm in thickness. The myometrium is distorted by multiple spherical, rubbery nodules resembling leiomyomas. These nodules range in size from 0.5 to 4.5 cm in greatest dimension. The nodules are submucosal, intramural and subserosal in location. Auto Emissions Technician sections are submitted as follows: 1 - anterior and posterior cervix, 2-4 - endometrium and adjacent myometrium, 5 - nodule free in container, 6 - largest intramyometrial nodule, 7 - second largest intramyometrial nodule, 8 - third largest intramyometrial nodule. / AM:nanci 10/22/18 TC:1 CPT: 58303
--- NOTE | 2018-10-22 10:09 | PCM.OPRPT ---
Problem List (1) Abnormal uterine bleeding Status: Acute (2) Uterine fibroid Status: Acute Report of Operation Date of Procedure: 10/22/18 Pre-Operative Diagnosis: aub fibroids Post-Operative Diagnosis: same Surgery/Procedure Performed:: tyree bs cysto Description of Surgical Findings:: enlarged 12 week size uterus multiple fibroids 420 g spring up supervisor: Yeimy Ma Type of Anesthesia:: General Special Medications: none Specimen's removed: uterus tubes Drains: harmon Estimated Blood Loss (mL): 150 Fluids Replaced: crystalloid Description of Procedure: Patient received preoperative antibiotics and SCDs were on preoperatively. Patient was taken back to the operating room and placed in the dorsal lithotomy position. General anesthesia was induced and patient was prepped and draped in normal sterile fashion. Uterine manipulator was placed inside the uterus and Harmon catheter placed in the bladder. The umbilicus was grasped with towel clamps and an intraumbilical incision was made after injecting with quarter percent Marcaine and a Veress needle entered into the abdomen confirmed to be intra-abdominal with a low opening pressure. Abdomen was insufflated with CO2 gas and the Veress needle removed and the 5 mm trocar was placed under direct visualization without complication. Right and left lower quadrants were transilluminated and injected with quarter percent Marcaine and 5 mm ports placed under direct visualization. Pelvis was well visualized see operative findings for additional information. the utero-ovarian ligament was bilaterally transected with the LigaSure device. The broad ligament was opened up by transecting the round ligament bilaterally and skeletonizing the uterine vessels bilaterally and creating a bladder flap using the LigaSure device. The uterine arteries were transected bilaterally with good visualization of the bladder and the ureters were seen to be inferior lateral to the operative area. Attention was then paid to the vaginal portion of the procedure and the cervix was grasped with Brian clamps and circumferentially injected with dilute vasopressin. A circumferential incision was made and the vaginal mucosa was mobilized off posteriorly and the cul-de-sac entered into sharply and a longneck speculum placed. The anterior cul-de-sac was then identified and entered into sharply. The uterosacral ligaments were clamped cut and suture ligated with 0 Monocryl bilaterally followed by the cardinal ligaments which were clamped cut and suture ligated bilaterally with 0 Monocryl. The uterus serially descended and was removed without difficulty with minimal morcellation. Pelvic sidewall pedicles were checked and noted to have excellent hemostasis. The vaginal mucosa was reapproximated incorporating the posterior peritoneum. This was reapproximated using 0 Vicryl [id number] sutures. Excellent hemostasis was noted. The cystoscopy was then performed and bilateral ureteral strong spray was noted and the bladder was noted to have no abnormality or lesions seen. Harmon catheter was replaced and then attention paid to the abdominal portion of the procedure again. The pelvis and cul-de-sac was well visualized and no significant active bleeding noted. Pressure was taken down and the areas visualized and noted of excellent hemostasis. All ports were removed under direct visualization without complication and the abdomen was desufflated of air. The instruments removed from the abdomen and the vagina vaginal sweep was negative. Port sites on the abdomen were closed with 4-0 Monocryl interrupted sutures and Steri's and windows were applied. She was awoken and taken recovery in stable condition. Grafts/Implants Used: none - Complications none
--- NOTE | 2018-10-22 10:16 | DCINST_ITS ---
Discharge Diet: No Restrictions Discharge Activity: Return to Normal Activity, May Not Drive, May Shower May resume sexual activity in: 6-8 weeks Call your doctor if your incision/area has: Continuous Slow Oozing, Sudden Increased Bleeding, Increased Pain/ Swelling, Increased Redness, Foul Smelling Discharge Call your doctor if you observe: Fever of 101 or Higher, Inability to urinate, Inability to have a bowel movement, Using more than one pad per hour Allergies/Adverse Reactions: Allergies egg Allergy (Verified 10/16/18 10:53) Anaphylaxis latex Allergy (Verified 10/22/18 08:17) Swelling sulfamethoxazole [From Bactrim] Adverse Reaction (Verified 10/16/18 10:53) Hives trimethoprim [From Bactrim] Adverse Reaction (Verified 10/16/18 10:53) Hives Medications to take at Discharge Albuterol Sulfate [Ventolin Hfa] 18 gm IH PRN PRN 02/04/17 Atenolol 50 mg PO QHS 02/04/17 Mometasone/Formoterol [Dulera 100 Mcg/5 Mcg Inhaler] 8.8 gm IH DAILY 02/04/17 Albuterol IH (ProAir) [Proair Hfa (SP)Vent Pts] 2 puff INHALATION Q6H PRN PRN 10/16/18 Mv-Min/Iron/Folic/Calcium/Vitk [Women's Multivitamin Tablet] 1 each PO DAILY 10/16/18 Azithromycin 250 tab PO DAILY 10/22/18 Oxycodone HCl/Acetaminophen [Percocet 5-325] 1 - 2 tablet PO Q4H PRN PRN 7 Days #15 tablet 10/22/18 The following prescriptions were given: Oxycodone HCl/Acetaminophen [Percocet 5-325] 1 - 2 tablet PO Q4H PRN PRN 7 Days #15 tablet PRN Reason: Pain Primary Care Physician: Maxine Ortiz DO [Primary Care Provider] - Test Results: Test results from this visit will be discussed in further detail at your follow- up appointment, if applicable. Please Follow Up With: Mariel Lambert MD - [phone]
[2018-10-22] MEDS: Vasopressin 20 UNITS/ML Vial (10:58)
[2018-10-22] MEDS: Bupivacaine 0.25% 30 ML Vial (11:31)
[2018-10-22] MEDS: Acetaminophen 500 MG Tablet 1000 MG PO ×3 (14:53→23:58)
[2018-10-22] MEDS: Ketorolac 30 MG/ML Syringe IV ×3 (14:54→23:59)
[2018-10-22] MEDS: Albuterol 2.5 MG/3 ML VIAL.NEB. INHALATION (18:35)
[2018-10-22] MEDS: Budesonide Respules 0.5 MG/2 ML AMPUL.NEB. INHALATION (18:36)
[2018-10-22] MEDS: Docusate Sodium 100 MG Capsule PO (21:50)
[2018-10-22] MEDS: Atenolol 50 MG Tablet PO (21:50)
[2018-10-22] MEDS: Lactated Ringers 1,000 ML 70 ML IV (23:59)
[2018-10-23 01:58] VITALS: PULSE 71; RESP 16
[2018-10-23] MEDS: Albuterol 2.5 MG/3 ML VIAL.NEB. INHALATION ×2 (01:58→07:11)
[2018-10-23 03:30] VITALS: BP 137/67; PULSE 82; RESP 18; TEMP 36.9; O2SAT 100
[2018-10-23] MEDS: Ketorolac 30 MG/ML Syringe IV (06:02)
[2018-10-23] MEDS: Acetaminophen 500 MG Tablet 1000 MG PO (06:02)
[2018-10-23 06:13] LABS: Hematocrit 27.1 % (37-47); Hemoglobin 8.7 g/dl (12.0-15.0); Mean Corp Hgb Conc 32.1 g/gl (32-36); Mean Corpuscular Hgb 26.4 pg (27.0-32.0); Mean Corpuscular Volume 82.4 fL (81-99); Mean Platelet Vol. 10.5 fl (6.2-12.0); Platelet Count 301 K/mm3 (150-450); RBC Distribution Width CV 14.3 % (11.6-14.6); RBC Distribution Width SD 41.2 fl (35.1-43.9); Red Blood Count 3.29 M/mm3 (4.2-5.4); White Blood Count 8.7 K/mm3 (4.4-11.0)
[2018-10-23 06:17] LABS: Scan Indicated on CBC? Y/N NO
[2018-10-23 07:11] VITALS: PULSE 77; RESP 16; O2SAT 98
[2018-10-23] MEDS: Budesonide Respules 0.5 MG/2 ML AMPUL.NEB. INHALATION (07:11)
[2018-10-23 07:53] VITALS: BP 128/56; PULSE 90; RESP 18; TEMP 36.6; O2SAT 100
[2018-10-23] MEDS: Multivitamins,Ther W-Minerals Tablet 1 TABLET PO (07:57)
--- NOTE | 2018-10-23 08:13 | PCM.PN.OB ---
Subjective: Feels well. [place]yon out and waiting to void. Plans home after that. Pain controlled - Physical Exam General: Alert, Oriented x3 Abdomen: Soft, Non Tender, Non-Distended, - - Dressing dry and intact Vital Signs Temp Pulse Resp BP Pulse Ox 97.8 F 90 18 128/56 H 100 10/23/18 07:53 10/23/18 07:53 10/23/18 07:53 10/23/18 07:53 10/23/18 07:53 Oxygen Delivery Method Room Air Weight: 210 lb 15.718 oz Body Mass Index (BMI) 34.0 Intake and Output for Last 24 Hours 10/21/18 10/22/18 10/23/18 23:59 23:59 23:59 Intake Total 2416 / 2416 2402 / 2402 Output Total 1230 / 1230 1850 / 1850 Balance 1186 / 1186 552 / 552 Laboratory Tests Past 24 Hrs 10/22/18 10/23/18 08:00 05:56 WBC 8.7 RBC 3.29 L Hgb 8.7 L Hct 27.1 L MCV 82.4 MCH 26.4 L MCHC 32.1 RDW 14.3 RDW Differential 41.2 Plt Count 301 MPV 10.5 Blood Type A POSITIVE Antibody Screen NEGATIVE Medical Necessity - Tobacco Use Smoking Status: Never smoker Assessment/Plan All Active Problems (Last Reviewed 10/13/18 @ 16:32 by Vicky Avendaño) Abnormal uterine bleeding (Acute) Uterine fibroid (Acute) LAVH POD#1: Routine care. Discharge this am
[2018-10-23] MEDS: Docusate Sodium 100 MG Capsule PO (11:02)
[2018-10-23 11:04] VITALS: BP 140/65; PULSE 75; RESP 16; TEMP 37.2; O2SAT 100
== END 2018-10-23 11:53 | disposition home or self-care (01) ==
LOC: SDC 07:39 → AC 07:42 → MS3 11:16
PROVIDERS: Anesthesiology; Family Provider Family Medicine; PCP Family Medicine; Referring Provider Obstetrics & Gynecology; Visit Provider Obstetrics & Gynecology
PROC: 0UT9FZZ Resection of Uterus, Via Natural or Artificial Opening With Percutaneous Endoscopic Assistance (ICD-10-PCS; CPT 52000; principal; 2018-10-22 09:15)
DX: D25.1 Intramural leiomyoma of uterus (principal); D25.0 Submucous leiomyoma of uterus; D25.2 Subserosal leiomyoma of uterus; N88.8 Other specified noninflammatory disorders of cervix uteri; N72 Inflammatory disease of cervix uteri; N71.1 Chronic inflammatory disease of uterus; N80.0 Endometriosis of uterus; J45.909 Unspecified asthma, uncomplicated; I10 Essential (primary) hypertension; K21.9 Gastro-esophageal reflux disease without esophagitis; Z79.51 Long term (current) use of inhaled steroids; Z79.899 Other long term (current) drug therapy
CPT/HCPCS: 52000; 58553; 36415; 81025; 85027; 86850; 86900; 88307; 94640; J7120; J2405

== ENCOUNTER → 2020-06-15 07:06 | Outpatient (CLI) | payer BC, SELFPAY ==
[2018-12-04 16:28] VITALS: BMI 34.0
== END ==
PROVIDERS: PCP Family Medicine; Referring Provider Family Medicine; Visit Provider Family Medicine
DX: Z03.818 Encounter for observation for suspected exposure to other biological agents ruled out (principal)
CPT/HCPCS: 87635; U0003

== ENCOUNTER → 2020-09-29 11:31 | Outpatient (CLI) | payer BC, SELFPAY ==
[2018-12-04 16:28] VITALS: BMI 34.0
[2020-09-29 13:32] LABS: ALB/GLOB Ratio 0.7 RATIO (0.9-2.4); AST(SGOT) 11 U/L (15-37); Alanine Aminotransfer ALT/SGPT 21 U/L (13-56); Albumin, Serum 3.3 g/dL (3.2-5.0); Alkaline Phosphatase 96 U/L (45-117); Anion Gap 5 (5-15); BUN 15 mg/dL (7-18); BUN/Creat Ratio 17.6 RATIO (10-20); Calcium,Total 9.6 mg/dL (8.5-10.1); Chloride 104 mmol/L (98-107); Cholesterol 153 mg/dL (200); Creatinine, Serum 0.85 mg/dL (0.55-1.02); EST Glomerular Filtration Rate 75 mL/min (>60); Est Glom Filt Rate - Afr Amer 90 mL/min (>60); Glucose 87 mg/dL (74-106); High Density Lipoprotein 59 mg/dL; Potassium 3.9 mmol/L (3.5-5.1); Protein, Total 8.3 g/dL (6.4-8.2); Sodium Level 136 mmol/L (136-145); Triglycerides 50 mg/dL; Very Low Density Lipoprotein 10 mg/dL (5-40)
== END ==
PROVIDERS: PCP Family Medicine; Referring Provider Family Medicine; Visit Provider Family Medicine
DX: Z00.00 Encounter for general adult medical examination without abnormal findings (principal); I10 Essential (primary) hypertension; Z51.81 Encounter for therapeutic drug level monitoring
CPT/HCPCS: 36415; 80053; 80061

== ENCOUNTER → 2021-01-19 15:39 | Outpatient (CLI) | payer BC, SELFPAY ==
[2018-12-04 16:28] VITALS: BMI 34.0
--- NOTE | 2021-01-19 15:52 | BI_ITS ---
MAMMOGRAPHY - BILATERAL SCREENING REASON FOR EXAM: Female, 50 years old. Routine annual screening examination. PERTINENT HISTORY: Non-contributory. TECHNIQUE: Digital bilateral breast jeanette (3D mammographic acquisition) in the CC and MLO projections. 2-D mediolateral oblique (MLO) and craniocaudad (CC) views of both breasts were obtained. CAD: Full Field Digital Mammography with Computer Added Detection was performed. COMPARISON: Comparison is made with prior study dated 07/09/2018 and 05/29/2015. FINDINGS: Breast Composition: The breasts are heterogeneously dense, which may obscure small masses. There are no dominant masses or suspicious calcifications. Stable benign-appearing bilateral axillary lymph nodes. Stable 9 mm x 10 mm nodular density in the superior lateral aspect of the left breast. This most likely represents a small intramammary lymph node. No other significant abnormalities are identified. There has been no significant change since the prior study. BI/SCRN MAMM (CAD)W/JEANETTE BILAT IMPRESSION: Stable bilateral screening mammogram. Yearly follow-up mammogram recommended. (A) ASSESSMENT CATEGORY: BIRADS Category 2: Benign. A letter regarding these results will be sent to the patient by the facility within 30 days. Approximately 10% of breast cancers are not detected by mammography. A normal mammogram should not delay biopsy of a clinically suspicious abnormality. [id number] Electronically Signed: Oli Edge MD at 8:55 EDT , Service support ,
== END ==
PROVIDERS: PCP Family Medicine; Referring Provider Family Medicine; Visit Provider Family Medicine
DX: Z12.31 Encounter for screening mammogram for malignant neoplasm of breast (principal)
CPT/HCPCS: 77063; 77067

== ENCOUNTER → 2021-04-26 12:58 | Outpatient (CLI) | payer BC, SELFPAY ==
[2021-03-28 05:45] VITALS: BMI 34.5
--- NOTE | 2021-04-27 10:16 | PFT ---
INTRODUCTION: The patient is a 51-year-old -[place] female who presents for pulmonary function studies secondary to a diagnosis of dyspnea. Respiratory therapy reported good patient effort. Bronchodilators were used during testing. INTERPRETATION: Forced expiration spirometry demonstrates the presence of a mild large airways obstructive ventilatory defect. There was no significant response to aerosolized bronchodilators. Spirograms are of good quality and plateau gradually indicating slow emptying of the lungs. Body plethysmography was performed and revealed a decreased TLC to 4.23 L, 79% of predicted, indicative of a mild restrictive ventilatory impairment. Diffusing capacity by single breath CO is within normal limits. IMPRESSION: Irreversible mild mixed ventilatory defect with preserved diffusing capacity.
== END ==
PROVIDERS: PCP Family Medicine; Referring Provider Internal Medicine Critical Care Medicine; Visit Provider Internal Medicine Critical Care Medicine
DX: R06.00 Dyspnea, unspecified (principal)
CPT/HCPCS: 94060; 94726; 94729

== ENCOUNTER 2021-04-28 16:00 | Emergency (ER) | payer BC, SELFPAY ==
[2021-04-28 16:03] VITALS: BP 157/88; PULSE 108; RESP 18; TEMP 36.9; O2SAT 98; BMI 74.7
--- NOTE | 2021-04-28 17:35 | ED.VIS.DYS ---
HPI History of Present Illness Chief Complaint: Asthma Informant: patient Narrative Narrative: Patient presents with mild asthma exacerbation. She states the last few days she has been using her inhalers but they just do not work as well. She will get the wheezing under control but then it seems to come back she also has a moderate amount of nasal congestion and postnasal drip. No facial pain. No sputum production. No chest pain. No fevers. No myalgias GI symptoms or headaches. She has had full Covid vaccine. She also gets checked every Friday at work and was negative within the past week. Albuterol helps her symptoms nothing makes them worse. Last steroid use was 3 to 6 months ago. [facility] Medical History Asthma Hypertension Home Medications albuterol sulfate 2 puff INHALATION Q6H PRN PRN 10/16/18 [History Last Taken Unknown] gw-fc-rekk-FA-Ca carb-vit K 1 ea PO DAILY 10/16/18 [History Last Taken Unknown] losartan 50 mg-hydrochlorothiazide 12.5 mg tablet 1 tab PO DAILY 03/28/21 [History Last Taken Unknown] mometasone-formoterol HFA 200 mcg-5 mcg/actuation aerosol inhaler 2 puff INHALATION Q12H #13 g 03/28/21 [Rx Last Taken Unknown] inhalational spacing device [Aerochamber MV] #1 ea 04/28/21 [Rx Last Taken Unknown] prednisone 60 mg PO DAILY #12 tab 04/28/21 [Rx Last Taken Unknown] Allergy/AdvReac Type Severity Reaction Status Date / Time egg Allergy Anaphylaxis Verified 03/28/21 08:02 latex Allergy Swelling Verified 03/28/21 08:02 sulfamethoxazole AdvReac Hives Verified 03/28/21 08:02 [From Bactrim] trimethoprim [From Bactrim] AdvReac Hives Verified 03/28/21 08:02 Surgical History S/P laparoscopic assisted vaginal hysterectomy (LAVH) Social History number of children: 3 current occupational status: employed current occupation: [employer] Smoking Status: Never smoker alcohol intake: never substance use type: does not use seatbelt use: always do you feel safe at home: Yes additional social history: Adrien Swain ROS ROS ED Constitutional Constitutional ED: Denies chills, fever(s) or sweats ENT ENT ED: Reports rhinorrhea; Denies ear pain or sore throat Cardiovascular Cardiovascular: Denies chest pain Respiratory/Chest Respiratory/Chest: Reports cough and other Details: Positive wheezing. See history of present illness. ; Denies dyspnea or sputum Gastrointestinal Gastrointestinal: Denies nausea or vomiting Musculoskeletal Musculoskeletal: Denies arthralgias or myalgias Integumentary Denies rash Neurologic Neurologic: Denies headache(s) Psychiatric Psychiatric: Denies anxiety or depression Endocrine Endocrinology: Denies polydipsia or polyuria Hematologic/Lymphatic Hematologic/Lymphatic: Denies easy bruising Allergic/Immunologic Allergic/Immunologic ED: Denies mouth swelling, tongue swelling or urticaria EXAM Physical Exam Const Vital Signs: 04/28/21 16:03 04/28/21 18:13 04/28/21 18:27 Temperature 98.5 F Temperature Source Temporal Pulse Rate 108 H Respiratory Rate 18 20 H Respiratory Effort Non-Labored Respiratory Depth Normal Respiratory Pattern Normal Blood Pressure 157/88 H Blood Pressure Mean 111 Pulse Ox 98 Oxygen Delivery Method Room Air Room Air Positive well nourished and well developed Constitutional Narrative: Patient is listed as 210 kg. She may be 210 pounds. General Appearance ED: well developed and NAD HEENT HEENT Narrative: No intraoral swelling. No masses. No exudate. Voice is normal. No facial tenderness. Mild nasal congestion. atraumatic Eyes General Eye ED: Negative for pale conjunctiva Neck no lymphadenopathy and no meningeal signs Resp normal respiratory effort Resp Narrative: Patient has a very faint end expiratory wheeze. No rhonchi or rales. Auscultation: wheezes; Negative for rales or rhonchi Cardio regular rate and regular rhythm Back/Spine normal to inspection Extremity normal to inspection General Extremety ED: Negative for edema or tenderness General Extremity: Negative for edema Neuro Sensorium / Orientation: alert Psych mental status grossly normal Skin Rashes: no rashes MDM MDM MDM Narrative Medical decision making narrative: Patient is generally been reasonably well-controlled with her albuterol. But she is using it more frequently. She just has faintest of expiratory wheeze. We will start her on prednisone. She will follow up with her physician. Discharge Plan Triage Chief Complaint: Asthma ED Provider: Joey Ugalde Dx/Rx/DC Orders Clinical Impression: Asthma exacerbation Instructions: Asthma Prescriptions: New (DME) Aerochamber MV Spacer See Rx Instructions .ROUTE .MEDSUPPLY Qty: 1 RF: 0 prednisone 20 MG tablet 60 mg PO DAILY Qty: 12 RF: 0 No Action losartan-hydrochlorothiazide 50-12.5 mg tablet 1 tab PO DAILY RF: 0 Dulera 200-5 mcg/actuation HFA aerosol inhaler 2 puff inhalation Q12H Qty: 13 RF: 5 albuterol sulfate 1 PUFF inhaler 2 puff Inhalation Q6H PRN PRN (Reason: Asthma) RF: 0 ck-tl-iqia-FA-Ca carb-vit K 1 EACH tablet 1 ea PO DAILY RF: 0 Primary Care Provider: Maxine Ortiz Referrals: Maxine Ortiz DO [Primary Care Provider] - 3-5 Days if not improving Disposition Disposition: Home, Self Care Discharge Date/Time: 04/28/21 18:27
[2021-04-28] MEDS: predniSONE 20 MG Tablet 60 MG PO (18:00)
[2021-04-28 18:27] VITALS: RESP 20
== END 2021-04-28 18:27 | disposition home or self-care (01) ==
PROVIDERS: Emergency Provider Emergency Medicine; PCP Family Medicine
DX: J45.901 Unspecified asthma with (acute) exacerbation (principal)
CPT/HCPCS: 99283

== ENCOUNTER 2021-10-25 11:15 | Outpatient (CLI) | payer BC, SELFPAY ==
[2021-10-25 13:27] LABS: Cholesterol 133 mg/dL (200); Glucose 87 mg/dL (74-106); High Density Lipoprotein 63 mg/dL; Triglycerides 42 mg/dL; Very Low Density Lipoprotein 8 mg/dL (5-40)
== END 2021-10-25 23:59 | disposition home or self-care (01) ==
LOC: LAB 11:23
PROVIDERS: PCP Family Medicine; Visit Provider Family Medicine
DX: N92.1 Excessive and frequent menstruation with irregular cycle (principal); R06.00 Dyspnea, unspecified
CPT/HCPCS: 36415; 80061; 82947

== ENCOUNTER 2022-06-16 20:18 | Emergency (ER) | payer BC, SELFPAY ==
[2022-06-16 20:20] VITALS: BP 162/79; PULSE 94; RESP 20; TEMP 36.9; O2SAT 99; BMI 33.9
--- NOTE | 2022-06-16 20:29 | EX.ED.DYSGE1 ---
HPI <RICHARD Richardson - Last Filed: 06/16/22 21:26> History of Present Illness Chief Complaint: General Illness Narrative Narrative: 52-year-old female with past medical history of asthma presents with 3 days of nasal and chest congestion and a productive cough. She is felt mildly more short of breath and has been using her nebulizer 3 times a day. She is concerned that she just does not want this to get worse since she has asthma. She has been taking Robitussin and Singulair. No fever or chills, no chest pain, no N/V/D. PFSH <RICHARD Richardson - Last Filed: 06/16/22 21:26> [facility] Medical History (Updated 06/16/22 @ 21:05 by RICHARD Richardson) Asthma Hypertension Home Medications albuterol sulfate 90 mcg/actuation aerosol inhaler 2 puff inhalation Q6H PRN PRN Asthma 10/16/18 [History Last Taken Unknown] fiyyqpzv-yjp-jnss-FA-Ca carb-vit K 18 mg iron-400 mcg-500 mg tablet 1 ea PO DAILY 10/16/18 [History Last Taken Unknown] losartan 50 mg-hydrochlorothiazide 12.5 mg tablet 1 tab PO DAILY 03/28/21 [History Last Taken Unknown] inhalational spacing device (Aerochamber MV spacer) #1 ea 04/28/21 [Rx Last Taken Unknown] prednisone 20 mg tablet 60 mg PO DAILY #12 tabs 04/28/21 [Rx Last Taken Unknown] fluticasone 250 mcg-salmeterol 50 mcg/dose blistr powdr for inhalation 1 inh inhalation Q12H #60 ea 06/22/21 [Rx Last Taken Unknown] montelukast 10 mg tablet 10 mg PO QPM #30 tabs 06/26/21 [Rx Last Taken Unknown] prednisone 50 mg tablet 50 mg PO DAILY 4 days #4 tabs 06/16/22 [Rx Last Taken Unknown] Allergy/AdvReac Type Severity Reaction Status Date / Time egg Allergy Anaphylaxis Verified 06/16/22 20:19 latex Allergy Swelling Verified 06/16/22 20:19 sulfamethoxazole AdvReac Hives Verified 06/16/22 20:19 [From Bactrim] trimethoprim [From Bactrim] AdvReac Hives Verified 06/16/22 20:19 Surgical History S/P laparoscopic assisted vaginal hysterectomy (LAVH) Social History number of children: 3 current occupational status: employed current occupation: [employer] Smoking Status: Never smoker alcohol intake: never substance use type: does not use seatbelt use: always do you feel safe at home: Yes additional social history: Adrien Swain ROS <RICHARD Richardson - Last Filed: 06/16/22 21:26> ROS ED ROS Narrative Constitutional: Negative for fever, chills, malaise. Eyes: Negative for visual change. ENT: Positive for rhinorrhea, congestion. Negative for sore throat, ear pain. CVS: Negative for palpitations, chest pain, syncope. Respiratory: Positive for shortness of breath, cough. Negative for orthopnea. GI: Negative for abdominal pain, nausea, vomiting, diarrhea, constipation, melena, hematochezia. : Negative for dysuria, hematuria or frequency. Neuro: Negative for headache, motor/sensory dysfunction. Skin: Negative for rash, abscess, or wound. Musc: Negative for joint pain, swelling, trauma. Heme: Negative for easy bruising, bleeding, lymphadenopathy. EXAM <RICHARD Richardson - Last Filed: 06/16/22 21:26> Physical Exam Narrative Exam Narrative: CONST: Patient sitting in no acute distress. EYES: Normal inspection. ENT: Normal oropharynx, moist mucous membranes. Nares clear. NECK: Normal inspection. No stridor or retractions. RESP: No respiratory distress, CTAB. CVS: Regular rate and rhythm, no murmur, no gallop. SKIN: Color normal, no rash, warm, dry, intact. EXTREMITIES: Normal appearance, no pedal edema. NEURO: Oriented x4. PSYCH: Normal affect. Const Vital Signs: 06/16/22 20:20 06/16/22 21:15 06/16/22 21:19 Temperature 98.4 F Temperature Source Temporal Pulse Rate 94 97 Respiratory Rate 20 H 18 Respiratory Pattern Normal Normal Blood Pressure 162/79 H Blood Pressure Mean 106 Pulse Ox 99 Oxygen Delivery Method Room Air <Dr. Florian Arias MD - Last Filed: 06/16/22 21:56> Physical Exam Const Vital Signs: 06/16/22 20:20 06/16/22 21:15 06/16/22 21:19 Temperature 98.4 F Temperature Source Temporal Pulse Rate 94 97 Respiratory Rate 20 H 18 Respiratory Pattern Normal Normal Blood Pressure 162/79 H Blood Pressure Mean 106 Pulse Ox 99 Oxygen Delivery Method Room Air [facility] <RICHARD Richardson - Last Filed: 06/16/22 21:26> [facility] Narrative Medical decision making narrative: Patient with asthma presents with 3 days of cough and congestion as well as shortness of breath. She has had increased use of her nebulizer. She appears well and nontoxic with normal vital signs. She is 99% on room air. She is speaking in full sentences in no distress. No stridor or wheezing noted. She will be treated for URI/asthma exacerbation with a prednisone burst x5 days and antibiotics if indicated pending the CXR. She declined a COVID test as she gets tested every Friday at work. She was counseled to return if symptoms worsen and was discharged in stable condition. <Dr. Florian Arias MD - Last Filed: 06/16/22 21:56> [facility] Radiography Chest X-Ray - ED: 2 View, Read by ED Physician, Normal and No Infiltrates Treatment and Re-Evaluation Narrative: Seen and evaluated independently and in conjunction with physician patient care nursing assistant. Agree with notes above unless documented otherwise. Patient's lungs clear to auscultation throughout. She felt a little tight in the chest so we gave her a duo nebulizer treatment which helped. Prescribed prednisone, she gets a negative COVID test regularly and has tested negative. Discharge Plan Triage Chief Complaint: General Illness ED Midlevel Provider: Maxine De La O ED Provider: Florian Arias Dx/Rx/DC Orders Clinical Impression: Upper respiratory infection, Asthma exacerbation Instructions: Discharge Instructions for Asthma, ED URI, Viral W/ Wheezing (Adult) Prescriptions: New prednisone 50 mg tablet 50 mg PO DAILY 4 Days Qty: 4 0RF No Action losartan-hydrochlorothiazide 50-12.5 mg tablet 1 tab PO DAILY montelukast 10 mg tablet 10 mg PO QPM Qty: 30 3RF albuterol sulfate 1 PUFF inhaler 2 puff Inhalation Q6H PRN PRN (Reason: Asthma) ba-ac-izgt-FA-Ca carb-vit K 1 EACH tablet 1 ea PO DAILY (DME) Aerochamber MV Spacer See Rx Instructions .ROUTE .MEDSUPPLY Qty: 1 0RF Rx Instructions: As directed prednisone 20 MG tablet 60 mg PO DAILY Qty: 12 0RF fluticasone propion-salmeterol 250-50 mcg/dose blister with device 1 inh inhalation Q12H Qty: 60 5RF Primary Care Provider: Maxine Ortiz Referrals: Maxine Ortiz DO [Primary Care Provider] - Activity Restrictions/Additional Instructions: Use your nebulizer and take the prednisone and follow up with your PCP. Return for worsening symptoms. Disposition Disposition: Home, Self Care
[2022-06-16] MEDS: predniSONE 20 MG Tablet 50 MG PO (21:13)
[2022-06-16] MEDS: Ipratropium/Albuterol Sulfate 3 ML AMPUL.NEB INHALATION (21:17)
[2022-06-16 21:19] VITALS: PULSE 97; RESP 18
--- NOTE | 2022-06-16 21:47 | RAD_ITS ---
INDICATION: cough EXAMINATION/TECHNIQUE: X-RAY - XR Chest 2 Views COMPARISON: None. FINDINGS: LINES/DEVICES: None. LUNGS: Symmetric normal lung volumes. No airspace opacity or abnormal interstitial pattern. No nodule or mass. No pleural effusion or pneumothorax. MEDIASTINUM AND CARDIOVASCULAR STRUCTURES: Normal size and contour of the cardiomediastinal silhouette. No evidence of pulmonary vascular congestion. BONES AND SOFT TISSUES: No fracture or focal osseous lesion. RAD/Chest PA and Lateral IMPRESSION: 1. No radiographic evidence of acute cardiopulmonary disease. Electronically Signed: David Ledesma DO at 22:04 EDT ,
== END 2022-06-16 22:48 | disposition home or self-care (01) ==
PROVIDERS: Emergency Provider Emergency Medicine; PCP Family Medicine; Visit Provider Emergency Medicine
DX: J06.9 Acute upper respiratory infection, unspecified (principal); J45.901 Unspecified asthma with (acute) exacerbation
CPT/HCPCS: 71046; 94640; 99282

== ENCOUNTER 2022-06-18 21:35 | Emergency (ER) | payer BC, SELFPAY ==
[2022-06-18 21:36] VITALS: BP 178/98; PULSE 93; RESP 16; TEMP 36.4; O2SAT 100; BMI 34.2
--- NOTE | 2022-06-18 22:42 | EX.ED.DYSGE1 ---
HPI History of Present Illness Chief Complaint: Overdose Narrative Narrative: Patient is a 52-year-old female with past medical history of hypertension. She states that she recently tested positive for COVID and her doctor put her on Paxlovid and prednisone. The patient states she was not informed about how she should take the Paxlovid medication and that around 630 on Friday and this evening she took all 6 pills at once. She states that she then realized that this was not the proper dosing and is concerned that this was now an overdose and therefore comes in for evaluation. She states that she does not have any type of headache change in vision nausea vomiting or diarrhea associated with this [facility] Medical History Asthma Hypertension Home Medications albuterol sulfate 90 mcg/actuation aerosol inhaler 2 puff inhalation Q6H PRN PRN Asthma 10/16/18 [History Last Taken Unknown] yzwhqtye-yjs-qgvi-FA-Ca carb-vit K 18 mg iron-400 mcg-500 mg tablet 1 ea PO DAILY 10/16/18 [History Last Taken Unknown] losartan 50 mg-hydrochlorothiazide 12.5 mg tablet 1 tab PO DAILY 03/28/21 [History Last Taken Unknown] inhalational spacing device (Aerochamber MV spacer) #1 ea 04/28/21 [Rx Last Taken Unknown] prednisone 20 mg tablet 60 mg PO DAILY #12 tabs 04/28/21 [Rx Last Taken Unknown] fluticasone 250 mcg-salmeterol 50 mcg/dose blistr powdr for inhalation 1 inh inhalation Q12H #60 ea 06/22/21 [Rx Last Taken Unknown] montelukast 10 mg tablet 10 mg PO QPM #30 tabs 06/26/21 [Rx Last Taken Unknown] prednisone 50 mg tablet 50 mg PO DAILY 4 days #4 tabs 06/16/22 [Rx Last Taken Unknown] Allergy/AdvReac Type Severity Reaction Status Date / Time egg Allergy Anaphylaxis Verified 06/18/22 21:39 latex Allergy Swelling Verified 06/18/22 21:39 sulfamethoxazole AdvReac Hives Verified 06/18/22 21:39 [From Bactrim] trimethoprim [From Bactrim] AdvReac Hives Verified 06/18/22 21:39 Surgical History S/P laparoscopic assisted vaginal hysterectomy (LAVH) Social History number of children: 3 current occupational status: employed current occupation: [employer] Smoking Status: Never smoker alcohol intake: never substance use type: does not use seatbelt use: always do you feel safe at home: Yes additional social history: Adrien Swain ROS ROS ED Constitutional Constitutional ED: Denies chills or fever(s) ENT ENT ED: Denies sore throat Cardiovascular Cardiovascular: Denies chest pain Respiratory/Chest Respiratory/Chest: Reports cough; Denies dyspnea Gastrointestinal Gastrointestinal: Denies abdominal pain, diarrhea, nausea or vomiting Genitourinary Genitourinary ED: Denies dysuria Musculoskeletal Musculoskeletal: Denies myalgias Integumentary Denies rash Neurologic Neurologic: Denies headache(s) Hematologic/Lymphatic Hematologic/Lymphatic: Denies easy bleeding or easy bruising EXAM Physical Exam Const Vital Signs: 06/18/22 21:36 Temperature 97.6 F L Temperature Source Temporal Pulse Rate 93 Respiratory Rate 16 Blood Pressure 178/98 H Blood Pressure Mean 124 Pulse Ox 100 Oxygen Delivery Method Room Air Positive well nourished and well developed General Appearance ED: well developed HEENT Reports moist mucous membranes Eyes PERRL and EOMs intact bilaterally Neck supple Resp normal respiratory effort and clear to auscultation bilaterally Cardio regular rate and regular rhythm GI normal to inspection, nondistended, normoactive bowel sounds, non-tender and non-distended Auscultation: normoactive bowel sounds Palpation: soft Extremity normal to inspection Neuro oriented x3 and CN's II-XII intact bilaterally Sensorium / Orientation: alert Psych mental status grossly normal Skin no rashes or lesions noted MDM MDM MDM Narrative Medical decision making narrative: Patient presented to the ER hypertensive but does have a history of hypertension and is also currently on prednisone which would elevate the value further. Moreover by exam she has no signs of endorgan damage so therefore I do not feel there is need to work this up. She reported taking the Paxlovid incorrectly as she took all 6 pills and wants instead of dividing into 3 in the morning and 3 in the evening. However she did not take more than the 6 pills/day. She denies any symptoms consistent with antiviral overdose at this time but to ensure that patient is safe I did talk to poison control. They recommend patient be observed for 4 hours from the time of ingestion and if she is not having any symptoms should be safe for discharge. As the patient took the medication at 630 and it is now past 1030 she has already met that observation criteria. Therefore she has no symptoms and has been observed for the time recommended by poison control with out any derangement to her mental status or physical exam she is safe for discharge Discharge Plan Triage Chief Complaint: Overdose ED Provider: Edu Montano Dx/Rx/DC Orders Clinical Impression: COVID-19, Accidental overdose, Hypertension Instructions: Coronavirus Disease 2019 (COVID-19): Caring for Yourself or Others Prescriptions: No Action losartan-hydrochlorothiazide 50-12.5 mg tablet 1 tab PO DAILY montelukast 10 mg tablet 10 mg PO QPM Qty: 30 3RF albuterol sulfate 1 PUFF inhaler 2 puff Inhalation Q6H PRN PRN (Reason: Asthma) nu-be-apvu-FA-Ca carb-vit K 1 EACH tablet 1 ea PO DAILY (DME) Aerochamber MV Spacer See Rx Instructions .ROUTE .MEDSUPPLY Qty: 1 0RF Rx Instructions: As directed prednisone 20 MG tablet 60 mg PO DAILY Qty: 12 0RF prednisone 50 mg tablet 50 mg PO DAILY 4 Days Qty: 4 0RF fluticasone propion-salmeterol 250-50 mcg/dose blister with device 1 inh inhalation Q12H Qty: 60 5RF Primary Care Provider: Maxine Ortiz Referrals: Maxine Ortiz DO [Primary Care Provider] - Activity Restrictions/Additional Instructions: Please take the pills in the prepackaged yellow/gold portion of the Paxil that in the morning and then the pills in the prepackaged blue section of the packs of it in the evening. If you develop worsening abdominal pain or intractable nausea or vomiting or diarrhea please return to the ER for repeat evaluation. Disposition Disposition: Home, Self Care Discharge Date/Time: 06/18/22 22:49
== END 2022-06-18 22:49 | disposition home or self-care (01) ==
LOC: ED 22:44
PROVIDERS: Emergency Provider Emergency Medicine; PCP Family Medicine; Visit Provider Emergency Medicine
DX: T50.991A Poisoning by other drugs, medicaments and biological substances, accidental (unintentional), initial encounter (principal); U07.1 COVID-19; I10 Essential (primary) hypertension
CPT/HCPCS: 99282

== ENCOUNTER → 2022-09-27 | Outpatient (CLI) | payer BC, SELFPAY ==
[2022-09-27 12:03] LABS: Cholesterol 157 mg/dL (200); Glucose 99 mg/dL (74-106); High Density Lipoprotein 68 mg/dL; Triglycerides 55 mg/dL; Very Low Density Lipoprotein 11 mg/dL (5-40)
== END | disposition home or self-care (01) ==
LOC: LAB 10:56
PROVIDERS: PCP Family Medicine; Referring Provider Family Medicine; Visit Provider Family Medicine
DX: Z00.00 Encounter for general adult medical examination without abnormal findings (principal); Z13.1 Encounter for screening for diabetes mellitus
CPT/HCPCS: 36415; 80061; 82947

== ENCOUNTER → 2023-01-07 | Outpatient (CLI) | payer BC, SELFPAY ==
--- NOTE | 2023-01-07 16:37 | BI_ITS ---
MAMMOGRAPHY - BILATERAL SCREENING REASON FOR EXAM: Female, 52 years old. Routine annual screening examination. PERTINENT HISTORY: Non-contributory. TECHNIQUE: Digital bilateral breast jeanette (3D mammographic acquisition) in the CC and MLO projections. 2-D mediolateral oblique (MLO) and craniocaudad (CC) views of both breasts were obtained. CAD: Full Field Digital Mammography with Computer Added Detection was performed. COMPARISON: Comparison is made with prior study dated January 19, 2021 and #[id number]. FINDINGS: Breast Composition: The breasts are heterogeneously dense, which may obscure small masses. There are no dominant masses or suspicious calcifications. Stable benign-appearing bilateral axillary lymph nodes. Stable 9 mm x 10 mm well-defined nodular density in the superior lateral aspect of the left breast. This most likely represents a small intramammary lymph node. No other significant abnormalities are identified. There has been no significant change since the prior study. BI/SCRN MAMM (CAD)W/JEANETTE BILAT IMPRESSION: Stable bilateral screening mammogram. Yearly follow-up mammogram recommended. (A) ASSESSMENT CATEGORY: BIRADS Category 2: Benign. A letter regarding these results will be sent to the patient by the facility within 30 days. Approximately 10% of breast cancers are not detected by mammography. A normal mammogram should not delay biopsy of a clinically suspicious abnormality. [id number] Electronically Signed: Oli Edge MD at 9:13 EDT ,
== END | disposition home or self-care (01) ==
LOC: OPBI 01-08 07:09
PROVIDERS: PCP Family Medicine; Referring Provider Family Medicine; Visit Provider Family Medicine
DX: Z12.31 Encounter for screening mammogram for malignant neoplasm of breast (principal)
CPT/HCPCS: 77063; 77067

== ENCOUNTER 2023-04-19 02:35 | Emergency (ER) | payer OTHER, SELFPAY ==
[2023-04-19 02:35] VITALS: BP 187/85; PULSE 79; RESP 17; TEMP 36.2; O2SAT 99; BMI 38.2
[2023-04-19 02:38] VITALS: O2SAT 99
--- NOTE | 2023-04-19 03:05 | ED.VIS.DYS ---
HPI History of Present Illness Chief Complaint: Shortness of Breath Narrative Narrative: 53-year-old female presenting with shortness of breath. She states that it feels like her throat is tight. She does not feel like he is wheezing. She is on a steroid taper right now with prednisone from her PCP. She is doing albuterol at home. She states he feels like her throat is tight but she does not feel as if she is wheezing and short of breath like an asthma exacerbation. She denies fever, chills, nausea, vomiting. She has no myalgias. Patient been eating well. She is concerned maybe she had an allergy to seafood however she does not have a known allergy to seafood and she is on prednisone. [facility] Medical History Asthma Hypertension Home Medications albuterol sulfate 90 mcg/actuation aerosol inhaler 2 puff inhalation Q6H PRN PRN Asthma 10/16/18 [History Last Taken Unknown] phpiodol-kev-cxff-FA-Ca carb-vit K 18 mg iron-400 mcg-500 mg tablet 1 ea PO DAILY 10/16/18 [History Last Taken Unknown] losartan 50 mg-hydrochlorothiazide 12.5 mg tablet 1 tab PO DAILY 03/28/21 [History Last Taken Unknown] inhalational spacing device (Aerochamber MV spacer) #1 ea 04/28/21 [Rx Last Taken Unknown] prednisone 20 mg tablet 60 mg (3 x 20 mg) PO DAILY #12 tabs 04/28/21 [Rx Last Taken Unknown] fluticasone 250 mcg-salmeterol 50 mcg/dose blistr powdr for inhalation 1 inh inhalation Q12H #60 ea 06/22/21 [Rx Last Taken Unknown] montelukast 10 mg tablet 10 mg PO QPM #30 tabs 06/26/21 [Rx Last Taken Unknown] prednisone 50 mg tablet 50 mg PO DAILY 4 days #4 tabs 06/16/22 [Rx Last Taken Unknown] Allergy/AdvReac Type Severity Reaction Status Date / Time egg Allergy Anaphylaxis Verified 04/19/23 02:38 latex Allergy Swelling Verified 04/19/23 02:38 sulfamethoxazole AdvReac Hives Verified 04/19/23 02:38 [From Bactrim] trimethoprim [From Bactrim] AdvReac Hives Verified 04/19/23 02:38 Surgical History S/P laparoscopic assisted vaginal hysterectomy (LAVH) Social History number of children: 3 current occupational status: employed current occupation: [employer] Smoking Status: Never smoker alcohol intake: never substance use type: does not use seatbelt use: always do you feel safe at home: Yes additional social history: Adrien Swain ROS ROS ED Constitutional Constitutional ED: Denies chills, fever(s) or sweats Eyes Eyes: Denies blurry vision or change in vision ENT ENT ED: Reports sore throat; Denies ear pain Cardiovascular Cardiovascular: Denies chest pain, palpitations or racing heartbeat Respiratory/Chest Respiratory/Chest: Reports dyspnea; Denies cough or sputum Gastrointestinal Gastrointestinal: Denies abdominal pain, constipation, diarrhea, nausea or vomiting Genitourinary Genitourinary ED: Denies dysuria, hematuria or urinary frequency Musculoskeletal Musculoskeletal: Denies arthralgias, myalgias or neck pain Integumentary Denies abscess, Abrasions or rash Neurologic Neurologic: Denies headache(s), paresthesias or weakness Psychiatric Psychiatric: Denies anxiety, depression, suicidal ideation or suicidal thoughts Endocrine Endocrinology: Denies polydipsia or polyuria EXAM Physical Exam Const Vital Signs: 04/19/23 02:35 04/19/23 02:38 04/19/23 03:13 Temperature 97.2 F L Temperature Source Temporal Pulse Rate 79 93 Respiratory Rate 17 14 Respiratory Effort Short of Breath Respiratory Depth Normal Respiratory Pattern Normal Normal Blood Pressure 187/85 H Blood Pressure Mean 119 Pulse Ox 99 Oxygen Delivery Method Room Air Room Air 04/19/23 03:42 Temperature Temperature Source Pulse Rate 82 Respiratory Rate 17 Respiratory Effort Respiratory Depth Respiratory Pattern Blood Pressure 167/80 H Blood Pressure Mean Pulse Ox 95 Oxygen Delivery Method Positive well nourished and well developed General Appearance ED: well developed HEENT Reports moist mucous membranes atraumatic Eyes PERRL and EOMs intact bilaterally Neck no lymphadenopathy and supple Neck Narrative: No stridor Resp normal respiratory effort and clear to auscultation bilaterally Auscultation: Negative for rales, rhonchi or wheezes Cardio regular rate and regular rhythm GI non-tender Neuro oriented x3 and CN's II-XII intact bilaterally Sensorium / Orientation: alert Psych mental status grossly normal Skin no wounds MDM MDM MDM Narrative Medical decision making narrative: Patient presenting with chief complaint of shortness of breath although she describing this as throat tightness. On exam she has no wheezing and her lungs are clear to auscultation. There is no stridor evident. Patient requested a DuoNeb and this was given. She states she has some relief but she still feels like her throat is irritated. To further discussion she has concerned that possibly all the steroid she is been taking is irritating her throat so we discussed giving a GI cocktail and she was amenable to this. Recommended Pepcid and or PPI at home. Return precautions discussed. Impression: 1. Dyspnea 2. Throat tightness Discharge Plan Triage Chief Complaint: Shortness of Breath ED Provider: Caleb Saha Dx/Rx/DC Orders Instructions: ED Dyspnea Prescriptions: No Action losartan-hydrochlorothiazide 50-12.5 mg tablet 1 tab PO DAILY montelukast 10 mg tablet 10 mg PO QPM Qty: 30 3RF albuterol sulfate 1 PUFF inhaler 2 puff Inhalation Q6H PRN PRN (Reason: Asthma) hd-pa-oqct-FA-Ca carb-vit K 1 EACH tablet 1 ea PO DAILY (DME) Aerochamber MV Spacer See Rx Instructions .ROUTE .MEDSUPPLY Qty: 1 0RF Rx Instructions: As directed prednisone 20 MG tablet 60 mg PO DAILY Qty: 12 0RF prednisone 50 mg tablet 50 mg PO DAILY 4 Days Qty: 4 0RF fluticasone propion-salmeterol 250-50 mcg/dose blister with device 1 inh inhalation Q12H Qty: 60 5RF Primary Care Provider: Maxine Ortiz Referrals: Maxine Ortiz DO [Primary Care Provider] - Disposition Disposition: Home, Self Care Discharge Date/Time: 04/19/23 04:11
[2023-04-19 03:13] VITALS: PULSE 93; RESP 14
[2023-04-19] MEDS: Ipratropium/Albuterol Sulfate 3 ML AMPUL.NEB INHALATION (03:13)
[2023-04-19 03:42] VITALS: BP 167/80; PULSE 82; RESP 17; O2SAT 95
[2023-04-19] MEDS: Mag Hydrox/Al Hydrox/Simeth 30 ML UDC PO (03:59)
== END 2023-04-19 04:11 | disposition home or self-care (01) ==
PROVIDERS: Emergency Provider Student in an Organized Health Care Education/Training Program; PCP Family Medicine; Visit Provider Student in an Organized Health Care Education/Training Program
DX: R06.00 Dyspnea, unspecified (principal)
CPT/HCPCS: 94640; 99282

== ENCOUNTER 2023-05-16 04:06 | Emergency (ER) | payer OTHER, SELFPAY ==
[2023-05-16 04:07] VITALS: BP 194/92; PULSE 102; RESP 18; TEMP 36.4; O2SAT 99; BMI 28.4
--- NOTE | 2023-05-16 04:22 | EKG12_ITS ---
Test Reason : SOB Blood Pressure : / mmHG Vent. Rate : 086 BPM Atrial Rate : 086 BPM P-R Int : 186 ms QRS Dur : 078 ms QT Int : 340 ms P-R-T Axes : 070 035 036 degrees QTc Int : 406 ms Normal sinus rhythm Normal ECG Confirmed by ROSA WESTON MD ([id number]), news video editor ANNA JANE ([id number]) on 05/20/2023 2:06:55 PM Referred By: Confirmed By:ROSA WESTON MD
--- NOTE | 2023-05-16 04:23 | EDS_ITS ---
HPI History of Present Illness Chief Complaint: Shortness of Breath Informant: patient Narrative Narrative: Patient presenting for a.m. for dyspnea on exertion that has been going on for couple months. She states she has no chest discomfort, palpitations, near-sy ncope or syncope, no leg edema with any of this. However she can go very short distance before she needs to rest, which helps. This is not normal for her. Has a history of asthma and states this does not feel like asthma. She is not wheezing. She has been on prednisone a couple times during the last couple months for this and it has not helped. She states furthermore, she has hoarseness, and she really thinks this may have started after she came down with COVID-19 in July 2022, about 10 months ago. However at that point she was put on prednisone and then she was breathing normally for a while and it seemed like it really helped. No history of DVT or PE, no long travel/immobilization or hospitalization/surgery recently. No leg pain or swelling. She does have some orthopnea sometimes. No coughing or fevers. States she has been seeing her PCP for this, she was put on Dulera, and told if it did not seem like it helped to return, but she decided to come here to the ER. [facility] Medical History Asthma Hypertension Home Medications albuterol sulfate 90 mcg/actuation aerosol inhaler 2 puff inhalation Q6H PRN PRN Asthma 10/16/18 [History Last Taken Unknown] wrxkulzn-qny-talj-FA-Ca carb-vit K 18 mg iron-400 mcg-500 mg tablet 1 ea PO DAILY 10/16/18 [History Last Taken Unknown] losartan 50 mg-hydrochlorothiazide 12.5 mg tablet 1 tab PO DAILY 03/28/21 [History Last Taken Unknown] inhalational spacing device (Aerochamber MV spacer) #1 ea 04/28/21 [Rx Last Taken Unknown] montelukast 10 mg tablet 10 mg PO QPM #30 tabs 06/26/21 [Rx Last Taken Unknown] mometasone-formoterol HFA 200 mcg-5 mcg/actuation aerosol inhaler (Dulera) 2 puff inhalation BID 05/16/23 [History Last Taken Unknown] mometasone-formoterol HFA 200 mcg-5 mcg/actuation aerosol inhaler (Dulera) 2 puff inhalation BID SOB 05/16/23 [History Last Taken Unknown] Allergy/AdvReac Type Severity Reaction Status Date / Time egg Allergy Anaphylaxis Verified 05/16/23 04:09 latex Allergy Swelling Verified 05/16/23 04:09 sulfamethoxazole AdvReac Hives Verified 05/16/23 04:09 [From Bactrim] trimethoprim [From Bactrim] AdvReac Hives Verified 05/16/23 04:09 Surgical History S/P laparoscopic assisted vaginal hysterectomy (LAVH) Social History number of children: 3 current occupational status: employed current occupation: [employer] Smoking Status: Never smoker alcohol intake: never substance use type: does not use seatbelt use: always do you feel safe at home: Yes additional social history: Adrien Swain BRENNA ROS ED Constitutional Constitutional ED: Denies chills or fever(s) Eyes Eyes: Denies change in vision or diplopia ENT ENT ED: Denies rhinorrhea or sore throat Cardiovascular Cardiovascular: Reports orthopnea; Denies chest pain, leg edema, lightheadedness, palpitations or syncope Respiratory/Chest Respiratory/Chest: Reports dyspnea, dyspnea on exertion and orthopnea; Denies cough Gastrointestinal Gastrointestinal: Denies abdominal pain, diarrhea, nausea or vomiting Genitourinary Genitourinary ED: Denies dysuria or hematuria Musculoskeletal Musculoskeletal: Denies back pain or neck pain Integumentary Denies abscess or rash Neurologic Neurologic: Denies headache(s), paresthesias or weakness Psychiatric Psychiatric: Denies anxiety or suicidal thoughts EXAM Physical Exam Const Vital Signs: 05/16/23 04:07 05/16/23 04:10 Temperature 97.6 F L Temperature Source Temporal Pulse Rate 102 H Respiratory Rate 18 Respiratory Effort Normal Blood Pressure 194/92 H Blood Pressure Mean 126 Pulse Ox 99 Oxygen Delivery Method Room Air Room Air Positive well nourished and well developed General Appearance ED: well developed and NAD HEENT Reports moist mucous membranes HEENT Narrative: Mild hoarseness no stridor normocephalic and atraumatic Eyes PERRL and EOMs intact bilaterally Neck full ROM, supple and no JVD Resp normal respiratory effort and clear to auscultation bilaterally Effort and Inspection: able to speak in complete sentences Cardio regular rate, regular rhythm and no murmurs GI non-tender and non-distended Auscultation: normoactive bowel sounds Palpation: soft Back/Spine no CVA tenderness General Back: other FROM Extremity normal to inspection General Extremety ED: Negative for edema, pulses abnormal or tenderness General Extremity: Negative for edema or pulses abnormal Neuro oriented x3, CN's II-XII intact bilaterally and no sensory deficits noted Sensorium / Orientation: awake and alert Motor Exam: strength 5/5 throughout Psych mental status grossly normal Skin no rashes or lesions noted and no wounds MDM MDM MDM Narrative Medical decision making narrative: Wide differential on this patient including cardiac, pulmonary, vascular etiologies. Aside from her significant hypertension here, her vital signs are. Obtained an EKG, her heart rate came down to 86 from low 100s, and it is normal. Initially obtain blood work, she has some anemia but it is better than it had been in the past, and her symptoms are worse so this is probably not the cause, her troponin is normal, her BNP is only 5.3, and her D-dimer is within normal limits ruling out pulmonary embolus. She is not in acute decompensated congestive heart failure given this. After obtaining the negative D-dimer I sent her for a chest x-ray since CT was not indicated or necessary, 2 views on my interpretation normal. Given all of this, I think she is stable for discharge home and I recommend close outpatient follow-up for repeat blood pressure check, and follow-up with pulmonology with whom she is scheduled on 06/06, she may need repeat PFTs as well. She is compliant with her blood pressure medication. On recheck here without treatment she is 161/89. She is very concerned about the cause of all of this which I understand. We discussed the difficulty of diagnosing these things in the emergency department, pathology such as pulmonary sarcoidosis or pulmonary hypertension can be difficult to diagnose in the emergency department. In discussing all of this, she has been on Dulera for a long time but it is expensive so she does not take it every day as prescribed, she tries to drag it out and make it last longer, her doctor put her on the higher dose just yesterday, I reassured her that it takes longer than a day or 2 to make it clinical difference. Asthma is certainly in the differential for all of this. Close outpatient follow-up advised, both with pulmonology and her doctor to recheck her blood pressure. Lab Data Attestation: I reviewed the patient's lab results. Labs: Laboratory Results - last 24 hr 05/16/23 04:30 WBC 8.0 RBC 4.39 Hgb 11.4 L Hct 36.4 L MCV 82.9 MCH 26.0 L MCHC 31.3 L RDW Std Deviation 43.5 RDW Coeff of Mary 14.3 Plt Count 330 MPV 9.9 Immature Gran % (Auto) 0.300 Neut % (Auto) 58.3 Lymph % (Auto) 32.0 Heard % (Auto) 6.3 Eos % (Auto) 2.5 Baso % (Auto) 0.6 Absolute Neuts (auto) 4.7 Absolute Lymphs (auto) 2.55 Nucleated RBC % 0 D-Dimer Quant (PE/DVT) 0.33 Sodium 139 Potassium 3.3 L Chloride 104 Carbon Dioxide 31.0 Anion Gap 4 L BUN 12 Creatinine 0.94 Estim Creat Clear Calc 64.05 Est GFR (MDRD) Af Amer 80 Est GFR (MDRD) Non-Af 66 BUN/Creatinine Ratio 12.7 Glucose 136 H Calcium 9.2 Troponin I High Sens 7 B-Natriuretic Peptide 5.3 Rhythm Strip Rhythm Strip: Sinus Rhythm Rate: 85 Ectopy: None EKG Initial EKG: Attestation: I personally reviewed and interpreted this EKG as follows: Interpretation: Sinus Rhythm and No Acute Injury Pattern Comments: nml EKG Discharge Plan Triage Chief Complaint: Shortness of Breath ED Provider: Florian Arias Dx/Rx/DC Orders Clinical Impression: MCKEON (dyspnea on exertion), Episode of hypertension, Asthma Instructions: ED Dyspnea, ED High Blood Pressure Hypertension Prescriptions: No Action losartan-hydrochlorothiazide 50-12.5 mg tablet 1 tab PO DAILY montelukast 10 mg tablet 10 mg PO QPM Qty: 30 3RF albuterol sulfate 1 PUFF inhaler 2 puff Inhalation Q6H PRN PRN (Reason: Asthma) na-eo-oyvt-FA-Ca carb-vit K 1 EACH tablet 1 ea PO DAILY (DME) Aerochamber MV Spacer See Rx Instructions .ROUTE .MEDSUPPLY Qty: 1 0RF Rx Instructions: As directed Dulera 200-5 mcg/actuation HFA aerosol inhaler 2 puff inhalation BID Dulera 200-5 mcg/actuation HFA aerosol inhaler 2 puff inhalation BID Primary Care Provider: Maxine Ortiz Referrals: Neeraj Fiore MD [Med Staff - Active Staff] - Keep Dania appointment Maxine Ortiz DO [Primary Care Provider] - As soon as possible Disposition Disposition: Home, Self Care
[2023-05-16 04:42] LABS: Absolute Lymphocyte Count 2.55 X10^3/uL (0.83-4.51); Absolute Neutrophil Count 4.7 X10^3/uL (2.0-7.7); Basophil# 0.05 X10^3/uL; Basophil% 0.6 % (0-1); Eosinophils% 2.5 % (0-5); Hematocrit 36.4 % (37-47); Hemoglobin 11.4 g/dL (12.0-15.0); Lymphocyte # 2.55 X10^3/ul (0.83-4.51); Mean Corp Hgb Conc 31.3 g/dL (32-36); Mean Corpuscular Volume 82.9 fL (81-99); Mean Platelet Vol. 9.9 fl (6.2-12.0); Monocyte% 6.3 % (0-10); NRBC Flagged by Analyzer 0 % (0-5); Neutrophil # 4.65 X10^3/uL (2.7-7.7); Neutrophil % 58.3 % (47-70); Platelet Count 330 K/mm3 (150-450); RBC Distribution Width CV 14.3 % (11.6-14.6); RBC Distribution Width SD 43.5 fl (35.1-43.9); Red Blood Count 4.39 M/mm3 (4.2-5.4)
[2023-05-16 04:53] LABS: D-Dimer Quantitative (DVT/PE) 0.33 FEU/ug/m (0.27-0.49)
--- NOTE | 2023-05-16 04:57 | RAD_ITS ---
EXAM: XR CHEST, 2 VIEWS CLINICAL INDICATION: sob TECHNIQUE: Frontal and lateral views of the chest. COMPARISON: 2 view chest 06/16/2022 FINDINGS: LUNGS AND PLEURAL SPACES: Unremarkable. No consolidation or edema. No pneumothorax. No effusion. HEART: Unremarkable. Cardiac silhouette not enlarged. MEDIASTINUM: Central airways and mediastinal contour are unremarkable. BONES/JOINTS: Unremarkable. SOFT TISSUES: Unremarkable. RAD/Chest PA and Lateral IMPRESSION: No radiographic evidence of acute cardiopulmonary disease. Electronically Signed: Duran Elise MD at 5:46 EDT ,
[2023-05-16 04:59] LABS: BNP,B-Type NATRIURETIC PEPTIDE 5.3 pg/mL (0-100)
[2023-05-16 05:01] LABS: Anion Gap 4 (5-15); BUN 12 mg/dL (7-18); BUN/Creat Ratio 12.7 RATIO (10-20); Calcium,Total 9.2 mg/dL (8.5-10.1); Chloride 104 mmol/L (98-107); Creatinine, Serum 0.94 mg/dL (0.55-1.02); EST Glomerular Filtration Rate 66 mL/min (>60); Est Glom Filt Rate - Afr Amer 80 mL/min (>60); Estimated Creatinine Clearance 64.05 ml/min; Glucose 136 mg/dL (74-106); Potassium 3.3 mmol/L (3.5-5.1); Sodium Level 139 mmol/L (136-145); Troponin-I HS 7 pg/mL (3.0-54.0)
[2023-05-16 05:17] VITALS: BP 161/89; PULSE 85; RESP 14
[2023-05-16 05:33] VITALS: BP 161/80; PULSE 83; RESP 16; O2SAT 97
== END 2023-05-16 05:34 | disposition home or self-care (01) ==
PROVIDERS: Emergency Provider Emergency Medicine; PCP Family Medicine; Visit Provider Emergency Medicine
DX: R06.09 Other forms of dyspnea (principal); J45.909 Unspecified asthma, uncomplicated; I10 Essential (primary) hypertension; Z79.899 Other long term (current) drug therapy; Z86.16 Personal history of COVID-19
CPT/HCPCS: 71046; 80048; 83880; 84484; 85025; 85379; 93005; 99282; A4216

== ENCOUNTER → 2023-06-03 | Outpatient (CLI) | payer OTHER, SELFPAY ==
[2023-06-03 10:05] LABS: Vitamin B12 855 pg/mL (211-911); Vitamin D,25 Hydroxy 43.1 ng/mL
== END | disposition home or self-care (01) ==
LOC: LAB 09:00
PROVIDERS: PCP Family Medicine; Referring Provider Family Medicine; Visit Provider Family Medicine
DX: E55.9 Vitamin D deficiency, unspecified (principal)
CPT/HCPCS: 36415; 82306; 82607

== ENCOUNTER → 2023-06-09 | Outpatient (CLI) | payer OTHER, SELFPAY ==
--- NOTE | 2023-06-09 09:32 | ECHOD_ITS ---
Reason For Study: DYSPNEA/SOB Procedure This was a 2D Doppler, Color Flow transthoracic echocardiogram. Exam performed in department. Left Ventricle Normal LV size. Left ventricular systolic function is normal. The left ventricular ejection fraction is 65 %. Stage 1 diastolic dysfunction. No regional wall motion abnormalities noted. Right Ventricle Normal RV size. Normal systolic function. Atria Normal left atrium. Normal right atrium. Mitral Valve Normal mitral valve. Tricuspid Valve Normal tricuspid valve. Aortic Valve Normal aortic valve. Pulmonic Valve Normal pulmonic valve. Great Vessels Normal aortic root. The pulmonary artery is normal size. Normal inferior vena cava. Pericardium/Pleural No pericardial effusion. MMode/2D Measurements & Calculations LVIDd: 3.8 cm IVSd: 0.83 cm Ao root diam: 2.6 cm LVIDs: 2.8 cm LVPWd: 0.95 cm RVDd: 2.7 cm FS: 26.1 % LAV(MOD-bp): 38.7 ml LVAd ap4: 25.9 cm2 LVAd ap2: 21.3 cm2 LAV(MOD-bp) Indexed: 18.5 ml/m2 LVLd ap4: 7.7 cm LVLd ap2: 7.3 cm LAV(MOD-sp2): 36.6 ml EDV(MOD-sp4): 75.3 ml EDV(MOD-sp2): 52.7 ml LAV(MOD-sp4): 36.0 ml EDV(sp4-el): 74.3 ml EDV(sp2-el): 52.7 ml LVAs ap4: 14.0 cm2 LVAs ap2: 11.8 cm2 LVLs ap4: 6.1 cm LVLs ap2: 6.0 cm ESV(MOD-sp4): 28.0 ml ESV(MOD-sp2): 19.7 ml ESV(sp4-el): 27.1 ml ESV(sp2-el): 19.5 ml EF(MOD-sp4): 62.8 % EF(MOD-sp2): 62.5 % EF(sp4-el): 63.5 % SV(MOD-sp4): 47.3 ml SV(MOD-sp2): 32.9 ml SV(sp4-el): 47.1 ml LA dimension(2D): 2.9 cm LA A4 area: 14.2 cm2 RA A4 area: 10.0 cm2 TAPSE: 2.3 cm Time Measurements MV dec time: 0.14 sec Doppler Measurements & Calculations MV E max fede: 66.4 cm/sec Lat Peak E' Fede: 9.9 cm/sec Med Peak E' Fede: 7.8 cm/sec MV A max fede: 99.8 cm/sec E/E' lat: 6.7 E/E' med: 8.5 MV E/A: 0.67 MV V2 max: 132.6 cm/sec MV P1/2t max fede: 82.9 cm/sec Ao V2 max: 146.4 cm/sec MV max P.0 mmHg MV P1/2t: 38.5 msec Ao max P.6 mmHg MV V2 mean: 81.2 cm/sec MV dec slope: 630.9 cm/sec2 Ao V2 mean: 99.5 cm/sec MV mean P.0 mmHg Ao mean P.5 mmHg MV V2 VTI: 21.0 cm MVA(P1/2t): 5.7 cm2 Ao V2 VTI: 25.8 cm AV (velocity ratio): 0.79 LV V1 max: 119.9 cm/sec PA V2 max: 129.4 cm/sec LV V1 max P.8 mmHg PA V2 mean: 86.7 cm/sec LV V1 mean P.1 mmHg LV V1 mean: 83.4 cm/sec LV V1 VTI: 20.5 cm ECHO/Echo Complete Interpretation Summary Normal LV size. Left ventricular systolic function is normal. The left ventricular ejection fraction is 65 %. Stage 1 diastolic dysfunction. Ordering Physician: Neeraj Fiore Referring Physician: Maxine Ortiz Performed By: Arleth Traore, MAHNAZ, RVT
--- NOTE | 2023-06-10 07:17 | PFT_ITS ---
INTRODUCTION: The patient is a 53-year-old -[place] female who presents for pulmonary function studies secondary to a diagnosis of asthma. Respiratory therapy reported good patient effort. Bronchodilators were used during testing. INTERPRETATION: Forced expiration spirometry demonstrates the presence of a moderate large airways obstructive ventilatory defect. There was a significant response to aerosolized bronchodilators. Spirograms are of good quality and plateau gradually indicating slow emptying of the lungs. Body plethysmography was performed and revealed an elevated RV to 143% of predicted, indicative of underlying air trapping. Diffusing capacity by single breath CO was within normal limits. IMPRESSION: Partially reversible moderate large airways obstructive ventilatory defect with associated air trapping.
== END | disposition home or self-care (01) ==
PROVIDERS: PCP Family Medicine; Referring Provider Internal Medicine Critical Care Medicine; Visit Provider Internal Medicine Critical Care Medicine
DX: J45.909 Unspecified asthma, uncomplicated (principal); R06.00 Dyspnea, unspecified
CPT/HCPCS: 93306; 94060; 94726; 94729

== ENCOUNTER → 2023-11-18 | Outpatient (CLI) | payer OTHER, SELFPAY | END | disposition home or self-care (01) | PROVIDERS: PCP Family Medicine; Referring Provider Nurse Practitioner Acute Care; Visit Provider Nurse Practitioner Acute Care | DX: G47.10 Hypersomnia, unspecified (principal) | CPT/HCPCS: 95806 ==

== ENCOUNTER 2024-03-10 19:21 | Emergency (ER) | payer BC, SELFPAY ==
[2024-03-10 19:23] VITALS: BP 134/77; PULSE 120; RESP 18; TEMP 36.8; O2SAT 99; BMI 36.4
--- NOTE | 2024-03-10 20:28 | EDS_ITS ---
HPI History of Present Illness Chief Complaint: Allergic Reaction Informant: patient Narrative Narrative: Very pleasant 53-year-old female presenting to the emergency room for the evaluation of hives. Patient has a history of allergies, eczema, and asthma. She states that today around 1530 hrs. she received an injection of dupilumab. She states that at approximately 1900 hrs. she began to have itching of her abdomen on her neck and noticed hives. She noted hives spread to the arms as well as itching on the back. This is the second time she has had the injection. She states she had an injection last year. This year she states that she got a shot in both eyes. Millimeter thing that she notes that is different and that she started using Dial soap 4 days ago. She last used the Dial this morning. She has not had any reaction over the past 4 days. Patient states her breathing seems somewhat shallow. She notes a previous history of angioedema. Since arriving in the emergency department using a cold washcloth she states that the itching/hives are better. [facility] Medical History Bilateral primary osteoarthritis of knee Knee pain, bilateral Asthma Hypertension Home Medications ?Medication ?Instructions ?Recorded ?Last Taken ?Type albuterol sulfate 90 mcg/actuation 2 puff inhalation Q6H PRN PRN 10/16/18 Unknown History aerosol inhaler Asthma losartan 50 mg-hydrochlorothiazide 1 tab PO DAILY 03/28/21 Unknown History 12.5 mg tablet inhalational spacing device #1 ea 04/28/21 Unknown Rx (Aerochamber MV spacer) mometasone-formoterol HFA 200 2 puff inhalation BID SOB #13 grams 06/24/23 Unknown Rx mcg-5 mcg/actuation aerosol inhaler (Dulera) montelukast 10 mg tablet 10 mg PO QPM #90 tabs 06/24/23 Unknown Rx albuterol sulfate 2.5 mg/3 mL 2.5 mg inhalation Q6H PRN 12/11/23 Unknown History (0.083 %) solution for nebulization shortness of breath or wheezing cholecalciferol (vitamin D3) 50 50 mcg PO DAILY 12/11/23 Unknown History mcg (2,000 unit) capsule cyanocobalamin (vitamin B-12) 1,000 mcg PO DAILY 12/11/23 Unknown History 1,000 mcg capsule triamcinolone acetonide 55 mcg 2 spray intranasal DAILY 12/11/23 Unknown History nasal spray aerosol (Nasacort) zinc acetate 25 mg (zinc) capsule 25 mg PO DAILY 12/11/23 Unknown History prednisone 20 mg tablet 60 mg (3 x 20 mg) PO DAILY 4 days 03/10/24 Unknown Rx #12 TABLETS Allergy/AdvReac Type Severity Reaction Status Date / Time egg Allergy Anaphylaxis Verified 03/10/24 19:25 latex Allergy Swelling Verified 03/10/24 19:25 sulfamethoxazole (From AdvReac Hives Verified 03/10/24 19:25 Bactrim) trimethoprim (From Bactrim) AdvReac Hives Verified 03/10/24 19:25 Surgical History S/P laparoscopic assisted vaginal hysterectomy (LAVH) Social History number of children: 3 current occupational status: employed current occupation: [employer] Smoking Status: Never smoker alcohol intake: never substance use type: does not use seatbelt use: always do you feel safe at home: Yes additional social history: Adrien Swain BRENNA CEJA ED Constitutional Constitutional ED: Denies chills or weight loss Eyes Eyes: Denies change in vision or diplopia ENT ENT ED: Denies ear pain, rhinorrhea or sore throat Cardiovascular Cardiovascular: Denies chest pain, orthopnea, palpitations or racing heartbeat Respiratory/Chest Respiratory/Chest: Denies cough, dyspnea or orthopnea Gastrointestinal Gastrointestinal: Denies abdominal pain, diarrhea, nausea or vomiting Genitourinary Genitourinary ED: Denies dysuria, hematuria or urinary frequency Musculoskeletal Musculoskeletal: Denies arthralgias or myalgias Integumentary Reports rash; Denies abscess Neurologic Neurologic: Denies headache(s) or weakness Psychiatric Psychiatric: Denies anxiety, depression, suicidal ideation or suicidal thoughts Endocrine Endocrinology: Denies polydipsia, polyphagia or polyuria Allergic/Immunologic Allergic/Immunologic ED: Denies mouth swelling, tongue swelling or urticaria EXAM Physical Exam Const Vital Signs: 03/10/24 19:23 Temperature 98.3 F Temperature Source Temporal Pulse Rate 120 H Respiratory Rate 18 Blood Pressure 134/77 H Blood Pressure Mean 96 Pulse Ox 99 Oxygen Delivery Method Room Air Positive well nourished and well developed General Appearance ED: well developed HEENT Reports normocephalic, head/scalp atraumatic and moist mucous membranes Eyes PERRL and EOMs intact bilaterally Neck no lymphadenopathy, supple and no JVD Resp normal respiratory effort and clear to auscultation bilaterally Cardio regular rate, regular rhythm and no murmurs GI normal to inspection, nondistended, normoactive bowel sounds and non-tender Palpation: soft Back/Spine no CVA tenderness and normal ROM Extremity normal to inspection General Extremety ED: Negative for edema General Extremity: Negative for edema Neuro oriented x3 and CN's II-XII intact bilaterally Sensorium / Orientation: alert Motor Exam: strength 5/5 throughout Psych mental status grossly normal Mood & Affect: Negative for depressed or tearful Skin no wounds Skin Narrative: Patient has small amount of hives noted on the anterior aspect of her neck. I see some hives at the wrist level bilaterally. She feels itching left shoulder abdomen hands. MDM MDM MDM Narrative Medical decision making narrative: Differential diagnosis includes but not limited to but not limited to hives, anaphylaxis, bronchospasm, angioedema Patient does not appear to be having anaphylaxis. Her lung sounds are clear. She received no received a dose of Pepcid Benadryl and prednisone. 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 She is tolerating p.o. fluids. She is observed and has had improvement in her symptoms. Patient will be discharged home. Should she wake tomorrow with continued symptoms would recommend continued Benadryl Pepcid and prednisone. Advised her to follow-up with her doctor who administered her injection today. She used Dial soap for 4 days without symptoms. She is not identifying really any other change that would have caused her hives. History & Record Review Discussion w/independent historian: Patient Discharge Plan Triage Chief Complaint: Allergic Reaction ED Provider: Mauricio Fairchild Dx/Rx/DC Orders Clinical Impression: Hives Instructions: ED Hives (Adult) Prescriptions: New prednisone 20 mg tablet 60 mg PO DAILY 4 Days Qty: 12 0RF No Action losartan-hydrochlorothiazide 50-12.5 mg tablet 1 tab PO DAILY albuterol sulfate 2.5 mg /3 mL (0.083 %) solution for nebulization 2.5 mg inhalation Q6H PRN (Reason: shortness of breath or wheezing) cyanocobalamin (vitamin B-12) 1,000 mcg capsule 1,000 mcg PO DAILY cholecalciferol (vitamin D3) 50 mcg (2,000 unit) capsule 50 mcg PO DAILY zinc acetate 25 mg (zinc) capsule 25 mg PO DAILY triamcinolone acetonide [Nasacort] 55 mcg aerosol,spray 2 spray intranasal DAILY Rx Instructions: administer into each nostril albuterol sulfate 1 PUFF inhaler 2 puff Inhalation Q6H PRN PRN (Reason: Asthma) (DME) Aerochamber MV Spacer See Rx Instructions .ROUTE .MEDSUPPLY Qty: 1 0RF Rx Instructions: As directed montelukast 10 mg tablet 10 mg PO QPM Qty: 90 3RF Dulera 200-5 mcg/actuation HFA aerosol inhaler 2 puff inhalation BID Qty: 13 11RF Primary Care Provider: Maxine Ortiz Referrals: Maxine Ortiz DO [Primary Care Provider] - Activity Restrictions/Additional Instructions: Pepcid 20 mg twice daily as needed for hives Benadryl every 8 hours as needed for hives Prednisone daily as directed if continued symptoms Print Language: Israeli Disposition Disposition: Home, Self Care
[2024-03-10] MEDS: Famotidine 20 MG Tablet 40 MG PO (20:36)
[2024-03-10] MEDS: predniSONE 20 MG Tablet 60 MG PO (20:37)
[2024-03-10] MEDS: DiphenhydrAMINE 25 MG Capsule PO (20:37)
[2024-03-10 21:22] VITALS: PULSE 64
[2024-03-10 22:10] VITALS: BP 123/79; PULSE 64; RESP 16; TEMP 36.2; O2SAT 99
== END 2024-03-10 22:11 | disposition home or self-care (01) ==
PROVIDERS: Emergency Provider Emergency Medicine; PCP Family Medicine; Visit Provider Emergency Medicine
DX: L50.9 Urticaria, unspecified (principal); I10 Essential (primary) hypertension; J45.909 Unspecified asthma, uncomplicated; Z79.51 Long term (current) use of inhaled steroids; Z79.899 Other long term (current) drug therapy
CPT/HCPCS: 99283

== ENCOUNTER → 2024-03-15 | Outpatient (CLI) | payer BC, SELFPAY ==
--- NOTE | 2024-03-15 15:48 | BI_ITS ---
MAMMOGRAPHY - BILATERAL SCREENING REASON FOR EXAM: Female, 53 years old. Routine annual screening examination. PERTINENT HISTORY: Non-contributory. TECHNIQUE: Digital bilateral breast jeanette (3D mammographic acquisition) in the CC and MLO projections. 2-D mediolateral oblique (MLO) and craniocaudad (CC) views of both breasts were obtained. CAD: Full Field Digital Mammography with Computer Added Detection was performed. COMPARISON: Comparison is made with prior study of January 07, 2023 and January 19, 2021. FINDINGS: Breast Composition: The breasts are heterogeneously dense, which may obscure small masses. There are no dominant masses or suspicious calcifications. Stable 1.1 sono well-defined nodule in the superior lateral aspect of the left breast. A fatty hilum is seen within the suggestive of a lymph node. Stable fat-containing bilateral axillary lymph nodes. No other significant abnormalities are identified. There has been no significant change since the prior study. BI/SCRN MAMM (CAD)W/JEANETTE BILAT IMPRESSION: Stable bilateral screening mammogram. Yearly follow-up mammogram recommended. (A) ASSESSMENT CATEGORY: BIRADS Category 2: Benign. A letter regarding these results will be sent to the patient by the facility within 30 days. Approximately 10% of breast cancers are not detected by mammography. A normal mammogram should not delay biopsy of a clinically suspicious abnormality. [id number] Electronically Signed: Oli Edge MD at 8:44 EDT ,
== END | disposition home or self-care (01) ==
LOC: OPBI 15:47
PROVIDERS: PCP Family Medicine; Referring Provider Family Medicine; Visit Provider Family Medicine
DX: Z12.31 Encounter for screening mammogram for malignant neoplasm of breast (principal)
CPT/HCPCS: 77063; 77067

== ENCOUNTER → 2024-11-03 | Outpatient (CLI) | payer BC, SELFPAY ==
[2024-11-03 09:45] LABS: Absolute Lymphocyte Count 2.49 X10^3/uL (0.83-4.51); Absolute Neutrophil Count 5.2 X10^3/uL (2.0-7.7); Basophil# 0.05 X10^3/uL; Basophil% 0.6 % (0-1); Eosinophil# 0.22 X10^3/uL; Eosinophils% 2.6 % (0-5); Hematocrit 34.5 % (37-47); Hemoglobin 11.3 g/dL (12.0-15.0); Lymphocyte # 2.49 X10^3/ul (0.83-4.51); Lymphocyte % 29.4 % (19-41); Mean Corp Hgb Conc 32.8 g/dL (32-36); Mean Corpuscular Hgb 26.7 pg (27.0-32.0); Mean Corpuscular Volume 81.4 fL (81-99); Mean Platelet Vol. 10.1 fl (6.2-12.0); Monocyte% 5.9 % (0-10); NRBC Flagged by Analyzer 0 % (0-5); Neutrophil # 5.18 X10^3/uL (2.7-7.7); Neutrophil % 61.1 % (47-70); Platelet Count 298 K/mm3 (150-450); RBC Distribution Width CV 14.4 % (11.6-14.6); RBC Distribution Width SD 42.6 fl (35.1-43.9); Red Blood Count 4.24 M/mm3 (4.2-5.4); White Blood Count 8.5 K/mm3 (4.4-11.0)
[2024-11-03 10:00] LABS: AST(SGOT) 18 U/L (<=31); Alanine Aminotransfer ALT/SGPT 17 U/L (<=34); Albumin, Serum 3.8 g/dL (3.5-5.0); Alkaline Phosphatase 118 U/L (35-104); Anion Gap 12 (5-15); BUN 13 mg/dL (4-19); BUN/Creat Ratio 15.1 RATIO (10-20); Calcium,Total 9.7 mg/dL (7.6-11.0); Carbon Dioxide 25.4 mmol/L (21.0-32.0); Chloride 102 mmol/L (98-108); Cholesterol 152 mg/dL (<=200); Creatinine, Serum 0.88 mg/dL (0.70-1.20); EST Glomerular Filtration Rate 78 (>60); Glucose 105 mg/dL (70-99); High Density Lipoprotein 66 mg/dL; Low Density Lipoprotein Calc. 75 mg/dL; Potassium 3.9 mmol/L (3.3-5.1); Protein, Total 7.8 g/dL (5.9-8.4); Sodium Level 140 mmol/L (133-145); Total Bilirubin 0.44 mg/dL (0.00-1.30); Triglycerides 52 mg/dL; Very Low Density Lipoprotein 10 mg/dL (5-40)
== END | disposition home or self-care (01) ==
LOC: LAB 08:39
PROVIDERS: PCP Family Medicine; Referring Provider Family Medicine; Visit Provider Family Medicine
DX: I10 Essential (primary) hypertension (principal); E78.5 Hyperlipidemia, unspecified; Z51.81 Encounter for therapeutic drug level monitoring
CPT/HCPCS: 36415; 80053; 80061; 85025

== ENCOUNTER 2025-01-19 12:05 | Day surgery (SDC) | payer BC, SELFPAY ==
--- NOTE | 2025-01-18 16:52 | PAT.ANESEVAL ---
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 When Was Last Pacemaker Check QUESTION #4 FULL TEXT: You/Your Family Experience fever (hyperthermia) with Anesthesia Last Oral Intake Last Oral intake: Last Oral Intake NPO since Meds taken in AM with sips of water? 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 - literacy education professor: PONV - literacy education professor Female Yes 01/18/25 16:10 HX of Motion Sickness Yes 01/18/25 16:10 HX of N/V After Surgery No 01/18/25 16:10 Non-Smoker Yes 01/18/25 16:10 Duration of Surgery greater No 01/18/25 16:10 than 60 minutes Number of Risk Factors 3 01/18/25 16:10 PONV Score Moderate Risk 01/18/25 16:10 Height & Weight Height & Weight: Anesthesia: Height & Weight Height 5 ft 6 in 03/10/24 19:23 Respiratory Assessment Respiratory Assessment - literacy education professor: Respiratory Tract Infection Hx - literacy education professor Hx Respiratory Tract Infection No 01/18/25 16:10 STOP Sleep Apnea STOP Sleep Apnea - literacy education professor: STOP Sleep Apnea - literacy education professor Hx Hypertension Yes: PER PT, CONTROLLED ON 01/18/25 16:10 MEDS Hx Sleep Apnea No: HAD SLEEP STUDY 202301/18/25 16:10 CPAP BIPAP Do you snore loudly (louder No 01/18/25 16:10 than talking or can be heard Do you often feel tired/ No 01/18/25 16:10 fatigued/ sleepy during daytime? Has anyone observed you stop No 01/18/25 16:10 breathing during sleep? STOP Results Negative 01/18/25 16:10 QUESTION #5 FULL TEXT : Do you snore loudly (louder than talking or can be heard through closed doors)? 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 Specify any problems Hx of Preganancy in last 3 No 01/18/25 16:10 Months Nurse Filling Out Transfusion MGRIFFITH 01/18/25 16:10 & Questions: Date: 01/18/25 01/18/25 16:10 Time: 16:12 01/18/25 16:10 Patient unable to answer at this time (ie. confused, unrespo /Reproduction History /Reproductive History - literacy education professor: /Reproductive Hx- literacy education professor Hx Now No 01/18/25 16:10 Gestational Age (in weeks): EDC: Hx Hx Para Hx Section SAB No 01/18/25 16:10 [facility] Medical History (Updated 01/18/25 @ 16:20 by Michelle Gaines) Depression Eczema Arthritis Injury of head and neck History of vertigo Difficulty swallowing Gastric reflux Non-smoker Shortness of breath on exertion Leg cramps History of edema History of echocardiogram Bilateral primary osteoarthritis of knee Knee pain, bilateral Asthma Hypertension Home Medications ?Medication ?Instructions ?Recorded ?Last Taken ?Type albuterol sulfate 90 mcg/actuation 2 puff inhalation Q6H PRN PRN 10/16/18 Unknown History aerosol inhaler Asthma losartan 50 mg-hydrochlorothiazide 1 tab PO DAILY 03/28/21 Unknown History 12.5 mg tablet inhalational spacing device #1 ea 04/28/21 Unknown Rx (Aerochamber MV spacer) montelukast 10 mg tablet 10 mg PO QPM #90 tabs 06/24/23 Unknown Rx albuterol sulfate 2.5 mg/3 mL 2.5 mg inhalation Q6H PRN 12/11/23 Unknown History (0.083 %) solution for nebulization shortness of breath or wheezing cholecalciferol (vitamin D3) 50 50 mcg PO DAILY 12/11/23 Unknown History mcg (2,000 unit) capsule cyanocobalamin (vitamin B-12) 1,000 mcg PO DAILY 12/11/23 Unknown History 1,000 mcg capsule triamcinolone acetonide 55 mcg 2 spray intranasal DAILY 12/11/23 Unknown History nasal spray aerosol (Nasacort) zinc acetate 25 mg (zinc) capsule 50 mg PO DAILY 12/11/23 Unknown History mometasone-formoterol HFA 200 2 puff inhalation BID SOB #13 grams 07/05/24 Unknown Rx mcg-5 mcg/actuation aerosol inhaler (Dulera) ascorbic acid 125 mg-collagen, 1 cap PO DAILY 01/18/25 Unknown History hydrolyzed 740 mg capsule (Collagen Plus Vitamin C) cod liver oil 1 cap PO DAILY 01/18/25 Unknown History Allergy/AdvReac Type Severity Reaction Status Date / Time egg Allergy Anaphylaxis Verified 01/18/25 16:02 latex Allergy Swelling Verified 01/18/25 16:02 sulfamethoxazole (From AdvReac Hives Verified 01/18/25 16:02 Bactrim) trimethoprim (From Bactrim) AdvReac Hives Verified 01/18/25 16:02 Surgical History S/P laparoscopic assisted vaginal hysterectomy (LAVH) Social History number of children: 3 current occupational status: employed current occupation: [employer] Smoking Status: Never smoker alcohol intake: never substance use type: does not use seatbelt use: always do you feel safe at home: Yes additional social history: Adrien Swain Audit: Pertinent Findings Pertinent Findings EKG Perinent findings: 05/16/2023. Normal sinus rhythm 86 bpm. Normal EKG. Echo (EF%) pertinent findings: 06/09/2023. Normal size function EF 65%. Recommendation Anesthesia Recommendation Anesthesia recommendation: OPTIMIZED for anesthesia
[2025-01-19] VITALS (8 sets, daily range): BP systolic 104–154; BP diastolic 59–78; PULSE 69–106; RESP 14–18; TEMP 36.3–36.8; O2SAT 99–100; BMI 35.2
--- NOTE | 2025-01-19 12:08 | H&P.OPEN ---
[facility] - General General Date of Service: 01/19/25 HPI Narrative ALTA CARRERO, is a 54 F who presents for screening colonoscopy. Patient's never had previous colonoscopy. Patient's brother had colon polyps denies any family history of colon cancer. Patient denies any chronic abdominal pain/nausea/vomiting. Patient states she only gets reflux symptoms maybe once every 3 to 4 months. Patient has bowel movements daily denies any blood. [facility] Medical History Depression Eczema Arthritis Injury of head and neck History of vertigo Difficulty swallowing Gastric reflux Non-smoker Shortness of breath on exertion Leg cramps History of edema History of echocardiogram Bilateral primary osteoarthritis of knee Knee pain, bilateral Asthma Hypertension Home Medications ?Medication ?Instructions ?Recorded ?Last Taken ?Type albuterol sulfate 90 mcg/actuation 2 puff inhalation Q6H PRN PRN 10/16/18 01/17/25 History aerosol inhaler Asthma losartan 50 mg-hydrochlorothiazide 1 tab PO DAILY 03/28/21 01/19/25 05:30 History 12.5 mg tablet inhalational spacing device #1 ea 04/28/21 Unknown Rx (Aerochamber MV spacer) montelukast 10 mg tablet 10 mg PO QPM #90 tabs 06/24/23 01/17/25 Rx albuterol sulfate 2.5 mg/3 mL 2.5 mg inhalation Q6H PRN 12/11/23 01/17/25 History (0.083 %) solution for nebulization shortness of breath or wheezing cholecalciferol (vitamin D3) 50 50 mcg PO DAILY 12/11/23 01/17/25 History mcg (2,000 unit) capsule cyanocobalamin (vitamin B-12) 1,000 mcg PO DAILY 12/11/23 01/17/25 History 1,000 mcg capsule triamcinolone acetonide 55 mcg 2 spray intranasal DAILY 12/11/23 Unknown History nasal spray aerosol (Nasacort) zinc acetate 25 mg (zinc) capsule 50 mg PO DAILY 12/11/23 01/17/25 History mometasone-formoterol HFA 200 2 puff inhalation BID SOB #13 grams 07/05/24 01/05/25 Rx mcg-5 mcg/actuation aerosol inhaler (Dulera) ascorbic acid 125 mg-collagen, 1 cap PO DAILY 01/18/25 01/17/25 History hydrolyzed 740 mg capsule (Collagen Plus Vitamin C) cod liver oil 1 cap PO DAILY 01/18/25 01/17/25 History Allergy/AdvReac Type Severity Reaction Status Date / Time egg Allergy Anaphylaxis Verified 01/19/25 12:29 latex Allergy Swelling Verified 01/19/25 12:29 sulfamethoxazole (From AdvReac Hives Verified 01/19/25 12:29 Bactrim) trimethoprim (From Bactrim) AdvReac Hives Verified 01/19/25 12:29 Surgical History S/P laparoscopic assisted vaginal hysterectomy (LAVH) Social History number of children: 3 current occupational status: employed current occupation: [employer] Smoking Status: Never smoker alcohol intake: never substance use type: does not use seatbelt use: always do you feel safe at home: Yes additional social history: Adrien Swain Past Medical/Surgical History Planned Operation Planned Operative Procedure(s): COLONOSCOPY S.O.S: No Previous Hospitalizations/Surgeries HX Hospitalizations: No Any Problems With Anesthesia: No You/Your Family Experience Fever (Hyperthermia) With Anes: No Cholinesterase deficiency: No Cardiovascular Hx Chest Pain within Last 2 months: No Hx of Irregular Heartbeat and/or Afib: No Hx Heart Attack: No Hx Congestive Heart Failure: No Hx Rheumatic Fever: No Hx Hypertension: Yes Hx Internal Defibrillator: No Hx Pacemaker: No Hx Cardiac Catheterization: No Hx Cardiac Surgery/Stents/Etc.: No Hx Stress Test: No Hx Pain in Legs when Walking/Leg Cramps: No Respiratory Chronic Cough: No HX of Shortness of Breath: No Hoarseness: No Hx Chronic Obstructive Pulmonary Disease (COPD): No Hx Asthma: Yes Hx Emphysema: No Hx Sleep Apnea: No Hx Respiratory Tract Infection/Cold (presently): No Do You Snore Loudly (louder than talking or can be heard): No Do You Often Feel Tired/ Fatigued/ Sleepy Dring Daytime?: No Has Anyone Observed You Stop Breathing During Sleep?: No Result (for STOP score): Negative Hx Smoking: No Smoking Status: Never smoker Gastrointestinal Controlled With Meds: Yes (PRN) Hx Gastrointestinal Disorders: No Hx Gastrointestinal Bleed: No Hx Ulcer: No Hx Hiatal Hernia: No Difficulty Chewing/Swallowing: Yes Special diet followed at home: No Hx Unplanned Weight Loss of 20#: No HX Unplanned Weight Gain of 20#: No Neurological Hx Seizures: No HX Syncope/Blackout Spells/Unconsciousness: No Hx Transient Ischemic Attacks (TIA): No Hx Multiple Sclerosis: No Hx Parkinson's Disease: No Hx Head/Neck Injury: No Hx Headaches: No Hx Back Injury/Pain: No Recent Onset of Speech Difficulty: No Restless Legs: No Does patient have nerve stimulator: No Blood Disorder Hx Leukemia: No Bleeding Tendencies: No Hx Deep Vein Thrombosis: No Hx High Cholesterol: No Blood Transmitted Disease: No Hx Hepatitis: No Hx Cirrhosis: No Hx Anemia: No Hx Blood Disorders: No Reproduction : No Is Patient Lactating: No Hx Hysterectomy: No Hx Tubal Ligation: No Are You Post Menopause: No Genitourinary Hx Renal Disease: No Musculoskeletal Hx Arthritis: No Hx Rheumatoid Arthritis: No Hx Gout: No Recent Onset of an Orthopedic Problem: No Endocrine Hx Diabetes: No Thyroid Disease: No Hx Steroid Therapy: No Psycho/Social Hx Substance Use: No Hx Alcohol Use: No Hx Anxiety: Yes Hx Depression: No Mental Illness: No Hx Dementia: No Miscellaneous Hx Cancer: No Recent Exposure to Contagious Disease: No Hx of C-Diff: No Any Loose Teeth: No Allergies egg Allergy (Verified 01/19/25 12:29) Anaphylaxis latex Allergy (Verified 01/19/25 12:29) Swelling sulfamethoxazole (From Bactrim) Adverse Reaction (Verified 01/19/25 12:29) Hives trimethoprim (From Bactrim) Adverse Reaction (Verified 01/19/25 12:29) Hives Discharge Is Pt Admitted From a Retirement, or a [place] [facility]: No Who Could Help: [facility] After D/C, Where Do you Plan to Go: Return Home Physical Exam Const alert, oriented x3 and no apparent distress HEENT normocephalic and head/scalp atraumatic Resp normal respiratory effort Cardio regular rate GI soft to palpation and non-tender; Negative for non-distended Palpation: Negative for guarding Extremity no clubbing, cyanosis or edema Skin no rashes or lesions noted Neuro CN's II-XII intact bilaterally Psych mental status grossly normal Assessment & Plan Assessment/Plan (1) Screening for colon cancer: Surgery Risks - Colonoscopy I discussed with the patient the risks of the procedure: Yes Risks Include but are not Limited To: Risks include but are not limited to: Bleeding, perforation requiring further surgery, inability to complete colonoscopy requiring barium enema.
[2025-01-19] MEDS: Lactated Ringers 1,000 ML 15 ML IV (12:56)
--- NOTE | 2025-01-19 13:05 | PRE.ANES_ITS ---
ASA Classification* ASA Classification ASA Classification: 2 Assessment & Plan Anesthesia* Anesthesia Assessment Anesthesia Assessment: Discussed sedation and/or anesthesia options, risks, benefits, and alternatives with patient/parents/legal guardian/POA. Questions invited. The patient/parents/legal guardian/POA seems to understand and agrees to proceed with anesthesia plan. Reviewed the physical assessment, medical history, allergy history and patient home medications list prior to surgery/procedure/anesthetic and documented any changes. Performed airway and anesthesia risk assessments. Anesthesia Type Anesthesia Type: MAC Anesthesia Focused Assessment* Temperature: 98.2 F Pulse Rate: 106 Blood Pressure: 154/78 Respiratory Rate: 18 Pulse Ox: 100 Airway Assessment Mouth opens: >3 cm Mallampati Score: II Focused Labs Anesthesia Preop lab: CBC WBC 8.5 K/mm3 (4.4-11.0) 11/03/24 09:11/03/24 RBC 4.24 M/mm3 (4.2-5.4) 11/03/24 09:11/03/24 Hgb 11.3 g/dL (12.0-15.0) L 11/03/24 09:19 5 Hct 34.5 % (37-47) L 11/03/24 09:19 11/03/24 Plt Count 298 K/mm3 (150-450) 11/03/24 09:19 11/03/24 CHEMISTRY Potassium 3.9 mmol/L (3.3-5.1) 11/03/24 09:19 11/03/24 Sodium 140 mmol/L (133-145) 11/03/24 09:19 11/03/24 Magnesium 1.5 mg/dL (1.8-2.4) L 06/22/13 15:18 06/22/13 BUN 13 mg/dL (4-19) 11/03/24 09:11/03/24 Creatinine 0.88 mg/dL (0.70-1.20) 11/03/24 09:19 11/03/24 Glucose 105 mg/dL (70-99) H 11/03/24 09:19 11/03/24 TSH 1.94 uIU/mL (0.358-3.74) 06/17/18 16:04 COAG Urine Test Negative Negative 10/22/18 07:52 10/22/18 Pre-Assessment Diagnosis/Proposed Procedure Planned Operative Procedure(s): COLONOSCOPY Anesthesia History 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 When Was Last Pacemaker Check QUESTION #4 FULL TEXT: You/Your Family Experience fever (hyperthermia) with Anesthesia Last Oral Intake Last Oral intake: Last Oral Intake NPO since 22:00 01/19/25 12:33 Meds taken in AM with sips of Yes 01/19/25 12:33 water? 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 Female Yes 01/18/25 16:10 HX of Motion Sickness Yes 01/18/25 16:10 HX of N/V After Surgery No 01/18/25 16:10 Non-Smoker Yes 01/18/25 16:10 Duration of Surgery greater No 01/18/25 16:10 than 60 minutes Number of Risk Factors 3 01/18/25 16:10 PONV Score Moderate Risk 01/18/25 16:10 Height & Weight Height & Weight: Anesthesia: Height & Weight Height 5 ft 6 in 01/19/25 12:33 Weight: 98.883 kg 01/19/25 12:33 Body Mass Index (BMI) 35.2 01/19/25 12:33 Respiratory Assessment Respiratory Assessment - crinkling machine operator: Respiratory Tract Infection Hx - crinkling machine operator Hx Respiratory Tract Infection No 01/19/25 12:09 STOP Sleep Apnea STOP Sleep Apnea - crinkling machine operator: STOP Sleep Apnea - crinkling machine operator Hx Hypertension Yes 01/19/25 12:09 Hx Sleep Apnea No 01/19/25 12:09 CPAP BIPAP Do you snore loudly (louder No 01/19/25 12:09 than talking or can be heard Do you often feel tired/ No 01/19/25 12:09 fatigued/ sleepy during daytime? Has anyone observed you stop No 01/19/25 12:09 breathing during sleep? STOP Results Negative 01/19/25 12:09 QUESTION #5 FULL TEXT : Do you snore loudly (louder than talking or can be heard through closed doors)? 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 Specify any problems Hx of Preganancy in last 3 No 01/18/25 16:10 Months Nurse Filling Out Transfusion MGRIFFITH 01/18/25 16:10 & Questions: Date: 01/18/25 01/18/25 16:10 Time: 16:12 01/18/25 16:10 Patient unable to answer at this time (ie. confused, unrespo /Reproduction History /Reproductive History - crinkling machine operator: /Reproductive Hx- crinkling machine operator Hx Now No 01/19/25 12:09 Gestational Age (in weeks): EDC: Hx Hx Para Hx Section SAB No 01/18/25 16:10 Active Medications Active Medications: Current Medications Generic Name Dose Route Start Last Admin Trade Name Freq PRN Reason Stop Dose Admin Lactated Ringer's 1,000 mls @ 15 mls/hr 01/19/25 12:15 01/19/25 12:56 IV 15 mls/hr .Q48H AMANDA Administration PFSH Medical History Depression Eczema Arthritis Injury of head and neck History of vertigo Difficulty swallowing Gastric reflux Non-smoker Shortness of breath on exertion Leg cramps History of edema History of echocardiogram Bilateral primary osteoarthritis of knee Knee pain, bilateral Asthma Hypertension Home Medications ?Medication ?Instructions ?Recorded ?Last Taken ?Type albuterol sulfate 90 mcg/actuation 2 puff inhalation Q 6H PRN PRN 10/16/18 01/17/25 History aerosol inhaler Asthma losartan 50 mg-hydrochlorothiazide 1 tab PO DAILY 03/0201/19/25 05:30 History 12.5 mg tablet inhalational spacing device #1 ea 04/28/21 Unknown Rx (Aerochamber MV spacer) montelukast 10 mg tablet 10 mg PO QPM #90 tabs 01/17/25 Rx albuterol sulfate 2.5 mg/3 mL 2.5 mg inhalation Q6H [place] N 12/11/23 01/17/25 History (0.083 %) solution for nebulization shortness of breat h or wheezing cholecalciferol (vitamin D3) 50 50 mcg PO DAILY 01/17/25 History mcg (2,000 unit) capsule cyanocobalamin (vitamin B-12) 1,000 mcg PO DAILY 12/1001/17/25 History 1,000 mcg capsule triamcinolone acetonide 55 mcg 2 spray intranasal SILVERIO Y 12/11/23 Unknown History nasal spray aerosol (Nasacort) zinc acetate 25 mg (zinc) capsule 50 mg PO DAILY 12/1001/17/25 History mometasone-formoterol HFA 200 2 puff inhalation BID SO B #13 grams 07/05/24 01/05/25 Rx mcg-5 mcg/actuation aerosol inhaler (Dulera) ascorbic acid 125 mg-collagen, 1 cap PO DAILY 01/18/25 01/17/25 History hydrolyzed 740 mg capsule (Collagen Plus Vitamin C) cod liver oil 1 cap PO DAILY 01/18/2512/30 History Allergy/AdvReac Type Severity Reaction Status Date / Time egg Allergy Anaphylaxis Verified 01/19/25 12:29 latex Allergy Swelling Verified 01/19/25 12:29 sulfamethoxazole (From AdvReac Hives Verified 01/19/25 12:29 Bactrim) trimethoprim (From Bactrim) AdvReac Hives Verified 01/19/25 12:29 Surgical History S/P laparoscopic assisted vaginal hysterectomy (LAVH) Social History number of children: 3 current occupational status: employed current occupation: [employer] Smoking Status: Never smoker alcohol intake: never substance use type: does not use seatbelt use: always do you feel safe at home: Yes additional social history: Adrien Swain Review of Systems (Anesthesia) ROS Narrative System reviewed and no additional complaints, except as documented.
--- NOTE | 2025-01-19 13:30 | COLBX_PTH ---
PATIENT: ALTA CARRERO LOC: EN U#:[id number] AGE/SX: 54/F ROOM: RE01/19/[address]: Dr. Leticia Dotson MD : 1970 BED: DIS: 01/19/2025 SPEC #: [id number] RECD: 01/19/25 16:03 STATUS: LY DAX #: [id number] WILLIAM: 01/19/25 13:[address]: Leticia Dotson DEPT: SURGICAL PATHOLOGY RECD BY: Bhavna Anna ENTERED: 01/20/25 07:40 SP TYPE: COLON BX OTHR DR: Dr. Maxine Ortiz DO Tissues: A - Cecum, NOS B - Descending colon C - Sigmoid colon biopsy D - Rectum, NOS Procedures: Surgery Specimen Level IV HEADER OPERATION: Colonoscopy, polypectomy with hot snare, biopsy PRE-OP DIAGNOSIS: Screening for colon cancer TISSUE SUBMITTED: A- Cecum polyp, B- Descending colon polyp, C- Sigmoid colon polyp, D- Rectal biopsy MICROSCOPIC DIAGNOSIS A. Colon, cecum, polyp, biopsy: Tubular adenoma. B. Descending colon, polyp, biopsy: Tubular adenoma. C. Sigmoid colon, polyp, biopsy: Tubular adenoma. D. Rectum, biopsy: Hyperplastic polyp. MICROSCOPIC DESCRIPTION Slides are reviewed. GROSS DESCRIPTION A. Received in formalin in a container labeled with the patient's name, date of , and cecum polyp are multiple machuca-brown fragments of mucosal tissue measuring 1.3 x 0.6 x 0.3 cm in aggregate. Submitted in toto in A1. B. Received in formalin in a container labeled with the patient's name, date of , and descending colon polyp are 3 machuca-pink fragments of mucosal tissue, each measuring 0.3 x 0.3 x 0.2 cm. Submitted in toto in B1. C. Received in formalin in a container labeled with the patient's name, date of , and sigmoid colon polyp is a 0.3 x 0.2 x 0.2 cm fragment of machuca-pink mucosal tissue. Submitted in toto in C1. D. Received in formalin in a container labeled with the patient's name, date of , and rectal biopsy is a 0.4 x 0.3 x 0.3 cm fragment of machuca-pink mucosal tissue. Submitted in toto in D1. [facility] 01-20-2025 CPT:[id number]
--- NOTE | 2025-01-19 15:03 | PCM.POST.ANE ---
Anesthesia: Postop Eval I Current Vital Signs Temperature: 97.3 F Pulse Rate: 74 Blood Pressure: 124/78 Respiratory Rate: 14 Pulse Ox: 99 Oxygen Delivery Method: Room Air Assessment Airway patent: Yes Spontaneous unlabored respirations: Yes Mental status: Awake nausea: No Vomiting: No Anesthesia Complication: No Fluid Hydration Crystalloid volume administer (ml): 500 Total IV fluid infused: 500 Progress Note Anesthesia document: Postop Eval 1 completed: Yes
--- NOTE | 2025-01-19 15:09 | OP.CCLET_ITS ---
01/19/2025 Maxine Ortiz [address] [place] [address] Re : Colonoscopy procedure for Khushbu Luther Dear Dr. Ortiz This procedure was performed on Sunday, January 19, 2025. My impressions and recommendations are as follows: Impressions : - Two less than 5 mm polyps in the sigmoid colon and in the descending colon, removed with a hot snare. Resected and retrieved. - One 8 mm polyp in the cecum, removed with a hot snare. Resected and retrieved. - One less than 5 mm polyp in the rectum. Biopsied. - The entire examined colon is normal on direct and retroflexion views. Recommendations : - Discharge patient to home. - Resume previous diet. - Continue present medications. - Await pathology results. - Repeat colonoscopy in 3 - 5 years for surveillance based on pathology results. My findings are described in the full procedure note, which is enclosed. If I can be of further assistance, please feel free to contact me at Doctor phone number(s): , Work: . Sincerely, MD Leticia Smallwood MD 01/19/2025 3:08:40 PM This report has been signed electronically.
--- NOTE | 2025-01-19 15:09 | OP.COLON_ITS ---
Patient Name: Khushbu Luther Procedure Date: 01/19/2025 2:06 PM Date of : 1970 Age: 54 Procedure: Colonoscopy Indications: Screening for colorectal malignant neoplasm Providers: Leticia Dotson MD Referring MD: Maxine Ortiz Medicines: Monitored Anesthesia Care Patient Profile: This is a 54 year old female. Last Colonoscopy: none. The patient's first colonoscopy is today. Complications: No immediate complications. Procedure: Pre-Anesthesia Assessment: - Prior to the procedure, a History and Physical was performed, and patient medications and allergies were reviewed. The patient's tolerance of previous anesthesia was also reviewed. The risks and benefits of the procedure and the sedation options and risks were discussed with the patient. All questions were answered, and informed consent was obtained. Prior Anticoagulants: The patient has taken no anticoagulant or antiplatelet agents. ASA Grade Assessment: Per anesthesia. After reviewing the risks and benefits, the patient was deemed in satisfactory condition to undergo the procedure. After I obtained informed consent, the scope was passed under direct vision. Throughout the procedure, the patient's blood pressure, pulse, and oxygen saturations were monitored continuously. The Colonoscope was introduced through the anus and advanced to the cecum, identified by the appendiceal orifice, ileocecal valve and palpation. The colonoscopy was performed with moderate difficulty due to significant looping and a tortuous colon. The patient tolerated the procedure well. The quality of the bowel preparation was good. Scope In: 2:13:48 PM Scope Withdrawal Time 0 hours 25 minutes 59 seconds Scope Out: 3:02:36 PM Total Procedure Duration Time 0 hours 48 minutes 48 seconds Findings: The perianal and digital rectal examinations were normal. Two sessile polyps were found in the sigmoid colon and descending colon. The polyps were less than 5 mm in size. These polyps were removed with a hot snare. Resection and retrieval were complete. An 8 mm polyp was found in the cecum. The polyp was multi-lobulated. The polyp was removed with a hot snare. Resection and retrieval were complete. A less than 5 mm polyp was found in the rectum. The polyp was sessile. Biopsies were taken with a cold forceps for histology. The entire examined colon appeared normal on direct and retroflexion views. Impression: - Two less than 5 mm polyps in the sigmoid colon and in the descending colon, removed with a hot snare. Resected and retrieved. - One 8 mm polyp in the cecum, removed with a hot snare. Resected and retrieved. - One less than 5 mm polyp in the rectum. Biopsied. - The entire examined colon is normal on direct and retroflexion views. Recommendation: - Discharge patient to home. - Resume previous diet. - Continue present medications. - Await pathology results. - Repeat colonoscopy in 3 - 5 years for surveillance based on pathology results. Procedure Code(s): --- Professional --- 46684, PT, Colonoscopy, flexible; with removal of tumor(s), polyp(s), or other lesion(s) by snare technique [id number], 59, Colonoscopy, flexible; with biopsy, single or multiple Diagnosis Code(s): --- Professional --- Z12.11, Encounter for screening for malignant neoplasm of colon D12.5, Benign neoplasm of sigmoid colon D12.4, Benign neoplasm of descending colon D12.0, Benign neoplasm of cecum D12.8, Benign neoplasm of rectum CPT copyright 2021 [employer]. All rights reserved. The codes documented in this report are preliminary and upon party planner review may be revised to meet current compliance requirements. MD Leticia Smallwood MD 01/19/2025 3:08:40 PM This report has been signed electronically. Number of Addenda: 0 Note Initiated On: 01/19/2025 2:06 PM
--- NOTE | 2025-01-19 16:23 | POSTOPAN2_ITS ---
Anesthesia Postop Eval I Sum Postop Eval Completion status Anesthesia document: Postop Eval 1 completed: Yes Anesthesia Postop Eval I Summary Anesthesia Postop Eval I Summary: Anesthesia Postop Eval I: Assessment Summary Airway patent Yes 01/19/25 15:05 [email or web address] Spontaneous unlabored Yes 01/19/25 15:05 [email or web address] respirations Mental status Awake 01/19/25 15:05 [email or web address] nausea No 01/19/25 15:05 [email or web address] Vomiting No 01/19/25 15:05 [email or web address] Anesthesia Postop Eval I: Fluid Summary Crystalloid volume administer 500 01/19/25 15:05 [email or web address] (ml) Colloids volume administered ( ml) Blood Product volume administered (ml) Total IV fluid infused 500 01/19/25 15:05 [email or web address] Anesthesia Postop Eval I: Summary Notes Anesthesia Complication No 01/19/25 15:05 [email or web address] Anesthesia Complication Comment: Post-operative progress note Anesthesia: Postop Eval II Evaluation Mental status: Awake Pain Level: 0 nausea: No Vomiting: No
--- NOTE | 2025-01-19 16:23 | PCM.POSTANE2 ---
Anesthesia Postop Eval I Sum Postop Eval Completion status Anesthesia document: Postop Eval 1 completed: Yes Anesthesia Postop Eval I Summary Anesthesia Postop Eval I Summary: Anesthesia Postop Eval I: Assessment Summary Airway patent Yes 01/19/25 15:05 [email or web address] Spontaneous unlabored Yes 01/19/25 15:05 [email or web address] respirations Mental status Awake 01/19/25 15:05 [email or web address] nausea No 01/19/25 15:05 [email or web address] Vomiting No 01/19/25 15:05 [email or web address] Anesthesia Postop Eval I: Fluid Summary Crystalloid volume administer 500 01/19/25 15:05 [email or web address] (ml) Colloids volume administered ( ml) Blood Product volume administered (ml) Total IV fluid infused 500 01/19/25 15:05 PRESS [email or web address] Anesthesia Postop Eval I: Summary Notes Anesthesia Complication No 01/19/25 15:05 PRESS [email or web address] Anesthesia Complication Comment: Post-operative progress note Anesthesia: Postop Eval II Evaluation Mental status: Awake Pain Level: 0 nausea: No Vomiting: No
== END 2025-01-19 15:58 | disposition home or self-care (01) ==
LOC: EN 12:06 → AC 12:07
PROVIDERS: PCP Family Medicine; Referring Provider Family Medicine; Visit Provider Surgery
PROC: 0DJD8ZZ Inspection of Lower Intestinal Tract, Via Natural or Artificial Opening Endoscopic (ICD-10-PCS; CPT 45378; principal; 2025-01-19 13:25)
DX: Z12.11 Encounter for screening for malignant neoplasm of colon (principal); D12.0 Benign neoplasm of cecum; I10 Essential (primary) hypertension; D12.4 Benign neoplasm of descending colon; D12.5 Benign neoplasm of sigmoid colon; J45.909 Unspecified asthma, uncomplicated; K21.9 Gastro-esophageal reflux disease without esophagitis; Z79.899 Other long term (current) drug therapy; K62.1 Rectal polyp
CPT/HCPCS: 45380; 45385; 88305

== ENCOUNTER → 2025-07-05 | Outpatient (CLI) | payer BC, SELFPAY ==
--- NOTE | 2025-07-05 16:51 | BI_ITS ---
EXAM: BI/SCRN MAMM (CAD)W/JEANETTE BILAT
== END | disposition home or self-care (01) ==
LOC: OPBI 07-06 07:03
PROVIDERS: PCP Family Medicine; Referring Provider Family Medicine; Visit Provider Family Medicine
DX: Z12.31 Encounter for screening mammogram for malignant neoplasm of breast (principal)
CPT/HCPCS: 77063; 77067